=== PATIENT | female | born 1985 | race Caucasian/White ===

== ENCOUNTER 2016-12-09 22:27 | Inpatient (IN) | payer MEDICAID ==
[~2016-12-09] VITALS: Ht 162.6 cm; Wt 79.9 kg
[2016-12-09 22:55] VITALS: Ht 162.6 cm; Wt 79.9 kg
[2016-12-09 22:56] VITALS: BP 99/57; PULSE 77; RESP 14
[2016-12-10] MEDS ORDERED: LACTATED RINGER'S 500 ML IV ONE (02:30)
[2016-12-10] MEDS: LACTATED RINGER'S 1,000 ML IV SCH ×3 (03:52→18:32)
[2016-12-10] MEDS ORDERED: ACETAMINOPHEN 325 MG TAB PO PRN (04:00)
[2016-12-10] MEDS ORDERED: MAGNESIUM SULFATE 4 GM/100 ML 100 ML IV ONE (04:00)
[2016-12-10] MEDS ORDERED: AL HYDROX/MG HYDROX/SIMETH 30 ML CUP PO PRN (04:00)
[2016-12-10 04:17] LABS: BASOPHILS % 0.3 % (0.0-2.0); EOSINOPHILS # 0.3 10^3/ul (0.0-0.5); EOSINOPHILS % 2.3 % (0.0-7.0); HEMATOCRIT 29.4 % (37.0-47.0); HEMOGLOBIN 9.9 g/dl (12.0-16.0); LYMPHOCYTES # 2.6 10^3/ul (0.8-2.9); LYMPHOCYTES % 22.5 % (15.0-51.0); MEAN CORPUSCULAR HEMOGLOBIN 29.5 pg (29.0-33.0); MEAN CORPUSCULAR HGB CONC 33.7 g/dl (32.0-37.0); MEAN CORPUSCULAR VOLUME 87.5 fl (82.0-101.0); MEAN PLATELET VOLUME 9.9 fl (7.4-10.4); MONOCYTE # 0.8 10^3/ul (0.3-0.9); MONOCYTES % 6.9 % (0.0-11.0); NEUTROPHIL # 7.6 10^3/ul (1.6-7.5); NEUTROPHILS % 65.8 % (39.0-77.0); PLATELET COUNT 254 10^3/UL (140-415); RED BLOOD COUNT 3.36 10^6/ul (4.20-5.40); RED CELL DISTRIBUTION WIDTH 13.5 % (11.5-14.5); WHITE BLOOD COUNT 11.5 10^3/ul (4.8-10.8)
[2016-12-10 04:19] LABS: INR 0.95; PROTIME 12.7 Sec (12.2-14.2)
[2016-12-10 04:22] LABS: ALBUMIN 3.3 g/dl (3.3-4.9); ALBUMIN/GLOBULIN RATIO 0.97; BILIRUBIN,INDIRECT 0.1 mg/dl (0-1.1); BILIRUBIN,TOTAL 0.1 mg/dl (0.2-1.3); CALCIUM 9.6 mg/dl (8.4-10.2); CREATININE 0.51 mg/dl (0.44-1.00); POTASSIUM 3.8 mmol/L (3.5-5.1); TOTAL PROTEIN 6.7 g/dl (6.1-8.1)
[2016-12-10 04:26] LABS: PARTIAL THROMBOPLASTIN TIME 23.8 Sec (25.0-35.0)
[2016-12-10] MEDS ORDERED: MAGNESIUM SULFATE 20 GM/500 ML 500 ML IV SCH (04:30)
--- NOTE | 2016-12-10 04:46 | RADRPT ---
PROCEDURE: CHEST - 1 VIEW CLINICAL INDICATION: 30-year-old female with shortness of breath. TECHNIQUE: A single frontal AP portable view of the chest was performed. The patient's abdomen wa s shielded. The images were reviewed on a PACS workstation. COMPARISON: None. FINDINGS: The cardiomediastinal silhouette has a normal appearance. There is no evidence for an infiltrate. T he pulmonary vascularity is within normal limits. There is no evidence for pneumothorax or pneumomed iastinum. The osseous structures are intact. IMPRESSION: No evidence for active cardiopulmonary disease. .Soren Saba MD, Date Time Electronically viewed and signed by .Soren Saba MD, on 12/10/2016 04:46 .M/
[2016-12-10] MEDS: BETAMET NA PHOS/AC(6 MG/ML) 5ML INJ IM SCH (04:56)
[2016-12-10 06:16] LABS: D-DIMER 1081.46 ng/ml (<460)
--- NOTE | 2016-12-10 06:36 | RADRPT ---
PROCEDURE: ULTRASOUND BIOPHYSICAL PROFILE CLINICAL INDICATION: 30-year-old female for viability. TECHNIQUE: Multiple sonographic images were obtained in order to perform a biophysical profile The images were reviewed on a PACS workstation. COMPARISON: None. FINDINGS: There is a single viable intrauterine gestation. There is a vertex presentation. Cardiac activity i s present at 139 beats per minute. The placenta is anterior. The results of the biophysical profile are as follows: breathing movement = 2/2 Gross body movement = 2/2 tone = 2/2 Qualitative amniotic fluid volume = 2/2 Amniotic fluid index equals 15.0 cm. This yields a biophysical profile score of 8/8. IMPRESSION: Biophysical profile score is 8/8. .Soren Saba MD, Date Time Electronically viewed and signed by .Soren Saba MD, MD on 12/10/2016 00:34 .M/
[2016-12-10 06:37] LABS: CK-MB 0.28 ng/ml (0.0-2.4); TROPONIN-I < 0.012 ng/ml (0.00-0.12)
--- NOTE | 2016-12-10 08:55 | CONS ---
Date/Time of Note Date/Time of Note DATE: 12/10/16 TIME: 08:45 Assessment/Plan Assessment/Plan Chief Complaint/Hosp Course This is a 30-year-old female in the labor and delivery unit for #1 shortness of breath: At the current time the mechanism of the patient's shortness of breath appears to be related secondary to contractions with the gravid uterus pushing up her abdomen. I feel like this likely is contributing to her shortness of breath as well as desaturations. When she is not jose david which was during my examination, she is saturating adequately. However with her questionable history that she described of shortness of breath for the past 2-3 days and her being and and hypercoagulable state there is a possible concern for underlying PE. D-dimer was elevated in the 1999s however this is not very definitive as it usually is elevated in states and it is not reliable study in the situation. At the current time I will order a stat CTA of the chest to rule out PE. Chest x-ray at the current time is within normal values. Will also order EKG and cardiac troponins for completeness sake. #2 IUP at 35 weeks: Continue management as per OB. Thank you for this consultation we will continue to follow this patient with you. Problems: Consultation Date/Type/Reason Admit Date/Time Dec 10, 2016 at 03:30 Date of Consultation: Dec 10, 2016 Reason for Consultation Short of breath Hx of Present Illness This is a 30-year-old G 1 P0 female at 35 weeks gestation who came in complaining of contractions and shortness of breath for approximately 2-3 days. We will call to evaluate the patient for shortness of breath and desaturations during her contractions. Patient states that every time she has a contraction she starts feeling short of breath. Once her contractions sees her breathing improved. She denies any chest pain. Denies any diaphoresis. She denies any pleuritic pain on deep inspiration. Denies any cough or hemoptysis. This is her first . Allergies: NKDA Medications: Prenatals Const: As per HPI Eyes : No pain discharge or redness or change in visual acuity ENT: No pain, sore throat, congestion, congestion, dysphagia or discharge Respiratory: As per HPI Cardiovascular: No chest pain, palpitation, PND, or edema GI : As per HPI Genitourinary: No dysuria, hematuria, flank pain , discharge or CVA tenderness Musculoskeletal: No joint pain, back pain, neck pain, restricted range of motion in neck or joints Skin: No rash, bruising or hives Neuro: No headache, dizziness, syncope, seizure, focal weakness Endocrine: No polyuria, polydipsia, temperature intolerance Psych: No hallucination, depression, anxiety or suicidal ideation Past Medical History Uterine cyst Past Surgical History Uterine cyst removal Family History Significant Family History: no pertinent family hx Social History Smoking Status: Former smoker Exam/Review of Systems Vital Signs Vitals Vital Signs Date Time Temp Pulse Resp B/P Pulse Ox O2 Delivery O2 Flow Rate FiO2 12/09/16 22:56 98.4 77 14 99/57 97 Room Air Intake and Output 12/09/16 12/09/16 12/10/16 15:00 23:00 07:00 Intake Total 2025 ml Output Total 500 ml Balance 1525 ml Exam General: This is a pleasant female sitting in bed in no acute distress. During my examination patient did not experience any contractions. HEENT: Atraumatic, normocephalic. The pupils are equal, round and reactive. Extraocular motor are intact Neck: Supple with full range of motion. No rigidity or meningismus Chest: Nontender Lungs: Clear to auscultation bilaterally no crackles rales or wheezing, patient does not appear in any respiratory distress and she does not complain of any pleuritic pain on deep inspiration Heart: Normal S1-S2, Regular rhythm and rate. No overt murmurs appreciated Abdomen: Gravid Extremities: Normal to inspection, no edema no cyanosis Neurologic: Normal mental status, speech normal, cranial nerves II through XII are intact, motor and sensory are intact, no focal weakness Additional Comments PROCEDURE: CHEST - 1 VIEW CLINICAL INDICATION: 30-year-old female with shortness of breath. TECHNIQUE: A single frontal AP portable view of the chest was performed. The patient's abdomen was shielded. The images were reviewed on a PACS workstation. COMPARISON: None. FINDINGS: The cardiomediastinal silhouette has a normal appearance. There is no evidence for an infiltrate. The pulmonary vascularity is within normal limits. There is no evidence for pneumothorax or pneumomediastinum. The osseous structures are intact. IMPRESSION: No evidence for active cardiopulmonary disease. .Soren Saba MD, Date Time Electronically viewed and signed by .Soren Saba MD, on 12/10/2016 04:46 .M/ CC: STEPHANIE ARREDONDO Results Result Diagram: 12/10/160 12/10/16 0230 Results 24 hrs Laboratory Tests Test 12/10/16 02:30 White Blood Count 11.5 H Red Blood Count 3.36 L Hemoglobin 9.9 L Hematocrit 29.4 L Mean Corpuscular Volume 87.5 Mean Corpuscular Hemoglobin 29.5 Mean Corpuscular Hemoglobin Concent 33.7 Red Cell Distribution Width 13.5 Platelet Count 254 Mean Platelet Volume 9.9 Neutrophils % 65.8 Lymphocytes % 22.5 Monocytes % 6.9 Eosinophils % 2.3 Basophils % 0.3 Nucleated Red Blood Cells % 0.0 Neutrophils # 7.6 H Lymphocytes # 2.6 Monocytes # 0.8 Eosinophils # 0.3 Basophils # 0.0 Nucleated Red Blood Cells # 0.0 Prothrombin Time 12.7 Prothrombin Time Ratio 1.0 INR International Normalized Ratio 0.95 Activated Partial Thromboplast Time 23.8 L D-Dimer 1081.46 H D-Dimer Comment Sodium Level 134 L Potassium Level 3.8 Chloride Level 104 Carbon Dioxide Level 25 Anion Gap 9 Blood Urea Nitrogen 7 Creatinine 0.51 Glucose Level 89 Calcium Level 9.6 Total Bilirubin 0.1 L Direct Bilirubin 0.00 Indirect Bilirubin 0.1 Aspartate Amino Transf (AST/SGOT) 19 Alanine Aminotransferase (ALT/SGPT) 35 Alkaline Phosphatase 166 H Creatinine Kinase MB (Mass) 0.28 Troponin I < 0.012 Total Protein 6.7 Albumin 3.3 Globulin 3.40 H Albumin/Globulin Ratio 0.97 Medications Medications Current Medications Lactated Ringer's 1,000 ml @ 150 mls/hr Q6H40M IV Last administered on 03:52; Admin Dose 150 MLS/HR; Start 12/10/16 at 02:30 Lactated Ringer's 1,000 ml @ 125 mls/hr Q8H IV Last administered on 12/10/16 06:01; Admin Dose 125 MLS/HR; Start 12/10/16 at 03:40 Magnesium Sulfate (Magnesium Sulfate 20 Gm/500 ml) 500 ml @ 50 mls/hr Q10H IV Last administered on 12/10/16 06:42; Admin Dose 50 MLS/HR; Start 12/10/16 at 04 :30 Betamethasone Acet/Betameth SodPhos (Celestone Soluspan) 12 mg Q24H IM Last administered on 12/10/16 04:56; Admin Dose 12 MG; Start 12/10/16 at 04:00; Stop 12/11/16 at 04:01 Prenat Multivit/ [employer]/Iron/Folic Ac () 1 tab DAILY PO ; Start 12/10/16 at 09:00 Acetaminophen (Tylenol Tab) 650 mg Q4H PRN PO PAIN AND OR ELEVATED TEMP; Start 12/10/16 at 04:00 Al Hydrox/Mg Hydrox/Simethicone (Mag-Al Plus) 30 ml Q6H PRN PO GASTROINTESTINAL UPSET; Start 12/10/16 at 04:00 STEPHANIE ARREDONDO Dec 10, 2016 08:55
[2016-12-10] MEDS ORDERED: PRENATAL VITAMIN PO SCH (09:00)
[2016-12-10] MEDS ORDERED: IOHEXOL 100 ML ONE (09:36)
[2016-12-10] MEDS ORDERED: SOD CHLORIDE 0.9% 100 ML ONE (09:36)
--- NOTE | 2016-12-10 10:02 | RADRPT ---
PROCEDURE: CTA Chest CLINICAL INDICATION: Chest pressure, dyspnea, 35 weeks TECHNIQUE: CTA of the chest was performed following the uncomplicated IV administration of 100 cc Omnipaque 350. Coronal and sagittal images were reconstructed from the axial data set. 3-D volumet alvin rendered post processing was performed as well. One or more of the following dose reduction minna hniques were used: automated exposure control, adjustment of the mA and/or kV according to patient s ize, use of iterative reconstruction technique. CTDI = 12.84 mGy. DLP = 410.50 mGy-cm. COMPARISON: Chest x-ray, 12/10/2016 FINDINGS: No filling defect is present to suggest pulmonary embolism. There is no evidence for pulmonary caitlin rial hypertension. There is mild bibasilar atelectasis. No acute infiltrate, pleural effusion, pulmonary edema or pneum othorax is identified. The central tracheobronchial tree is clear. No pulmonary nodule or mass is id entified. The heart size is normal without pericardial effusion. There is no thoracic aortic aneurysm or disse ction. No mediastinal, hilar, axillary or supraclavicular lymphadenopathy is identified. Mild hiatal hernia is noted. Visualized portions of the upper abdomen demonstrate no acute abnormality. The osseous structures a re unremarkable. No osteolytic or osteoblastic lesion is seen. IMPRESSION: 1. No pulmonary embolism is identified. 2. Mild hiatal hernia is noted. 3. No mass, lymphadenopathy, or focal acute infiltrate is seen. RPTAT: AAOO .Ambrocio Mcnally MD, Date Time Electronically viewed and signed by .Ambrocio Mcnally MD, on 12/10/2016 10:02 .R/
--- NOTE | 2016-12-10 14:06 | HP ---
Date/Time of Note Date/Time of Note DATE: 12/10/16 TIME: 14:03 OB - History Hx of Present Free Text/Dictation @35+wks GA With CTXs and in early labor Patient had shortness of Breath earlier and has been evaluated by Hospitalist s/p Mg and first dose of steroid : 1 Para: 0 Care: Good Care Ultrasounds: Normal mid trimester US Obstetrical Complications: None Medical Complications: None Past Family/Social History * Past Medical, Surgical, Family and Obstetric Histories reviewed from chart. OB Admission Exam Vital Signs Vital Signs Vital Signs Date Time Temp Pulse Resp B/P Pulse Ox O2 Delivery O2 Flow Rate FiO2 12/09/16 22:56 98.4 77 14 99/57 97 Room Air Physical Exam Abdomen: WNL Extremities: Normal Cervical Dilatation: 1cm Effacement: Other (90%) Station: -1 Membranes: Intact Heart Rate: 140's Accelerations: Accelerations Present Decelerations: No Decelerations Varibility: Moderate Contractions on Admission: < 5 Minutes Apart Last 72 hours Lab Results CBC & BMP 12/10/16 02:30 Liver Function Test 12/10/16 02:30 Alanine Aminotransferase (ALT/SGPT) 35 Albumin 3.3 Alkaline Phosphatase 166 H Aspartate Amino Transf (AST/SGOT) 19 Direct Bilirubin 0.00 Total Protein 6.7 Magnesium Level Test 12/10/16 11:37 Magnesium Level 3.9 H OB Assessment/Plan Reason for admission: observation Plan: Expectant Management PIERRE GRUBER M.D. Dec 10, 2016 14:06
--- NOTE | 2016-12-10 14:30 | TRIAGE ---
OB Triage Datetime Report Generated by CPN: 12/10/2016 14:29 Datetime: 12/10/2016 13:53 Vaginal Exam Dilatation (cms): 1.0 Effacement (%): 90 Station: -1 Exam By: DR GRUBER Vaginal Bleeding: None Cervix, Consistency: Soft Cervix, Position: Posterior Presentation 'A': Cephalic Datetime: 12/10/2016 13:33 Maternal Assessment Level of Consciousness: Fully Conscious DTR's/Clonus: DTRs 2+ Headache: Denies Respiratory Effort: Unlabored Breath Sounds, Left: Clear and Equal Breath Sounds, Right: Clear and Equal Labor Evaluation Frequency: 6-7 Monitor Mode: External Duration (sec)2399: 50-70 Quality: Mild Resting Tone Ama: Relaxed Heart Rate FHR Baseline Rate: 125 Monitor Mode: External US Variability: Moderate 6-25 bpm Accelerations: 10X10 Decelerations: None Category: Category I Pain Assessment Pain Scale: 3 Pain Presence: None/Denies Pain Type: Cramping Pain Location: Abdomen Pain Goal: 3 Pain Relief Measures: Comfort Measures Datetime: 12/10/2016 13:22 Stage of : OB Triage Datetime: 12/10/2016 12:30 Maternal Assessment Level of Consciousness: Fully Conscious DTR's/Clonus: DTRs 2+ Headache: Denies Blurred Vision: No Respiratory Effort: Unlabored Breath Sounds, Left: Clear and Equal Breath Sounds, Right: Clear and Equal Facial Edema: None Labor Evaluation Frequency: 4-5 Monitor Mode: External Duration (sec)2399: 50-70 Quality: Mild Pattern: Normal: <= 5 Contractions in 10 Minutes Resting Tone Ama: Relaxed Heart Rate FHR Baseline Rate: 130 Monitor Mode: External US Variability: Moderate 6-25 bpm Accelerations: 10X10 Decelerations: None Category: Category I Pain Assessment Pain Scale: 4 Pain Presence: Intermittent Pain Type: N/A Pain Location: Abdomen Pain Goal: 3 Pain Relief Measures: Comfort Measures Datetime: 12/10/2016 11:19 Maternal Assessment Level of Consciousness: Fully Conscious DTR's/Clonus: DTRs 2+ Headache: Denies Blurred Vision: No Respiratory Effort: Unlabored Breath Sounds, Left: Clear and Equal Breath Sounds, Right: Clear and Equal RUQ Epigastric Pain: Denies Facial Edema: None Labor Evaluation Frequency: 4-7 Monitor Mode: External Duration (sec)2399: 50-70 Quality: Mild Resting Tone Ama: Relaxed Heart Rate FHR Baseline Rate: 125 Monitor Mode: External US Variability: Moderate 6-25 bpm Accelerations: 10X10 Decelerations: None Category: Category I Pain Assessment Pain Scale: 4 Pain Presence: Intermittent Pain Type: Cramping Pain Location: Abdomen Pain Goal: 3 Pain Relief Measures: Comfort Measures Datetime: 12/10/2016 11:01 Stage of : OB Triage Datetime: 12/10/2016 10:50 Stage of : OB Triage Datetime: 12/10/2016 10:23 Maternal Assessment Level of Consciousness: Fully Conscious DTR's/Clonus: DTRs 2+ Headache: Denies Blurred Vision: No Respiratory Effort: Unlabored Breath Sounds, Left: Clear and Equal Breath Sounds, Right: Clear and Equal Nausea/Vomiting: Denies RUQ Epigastric Pain: Denies Facial Edema: None Labor Evaluation Frequency: 2-3 Monitor Mode: External Duration (sec)2399: 50-70 Quality: Mild Pattern: Normal: <= 5 Contractions in 10 Minutes Resting Tone Ama: Relaxed Heart Rate FHR Baseline Rate: 125 Monitor Mode: External US Variability: Moderate 6-25 bpm Accelerations: 10X10 Decelerations: None Category: Category I Pain Assessment Pain Scale: 4 Pain Presence: Intermittent Pain Type: Cramping Pain Location: Abdomen Pain Goal: 3 Pain Relief Measures: Comfort Measures Datetime: 12/10/2016 09:21 Maternal Assessment Level of Consciousness: Fully Conscious DTR's/Clonus: DTRs 2+ Headache: Denies Blurred Vision: No Respiratory Effort: Unlabored Breath Sounds, Left: Clear and Equal Breath Sounds, Right: Clear and Equal Nausea/Vomiting: Denies RUQ Epigastric Pain: Denies Labor Evaluation Frequency: 2-7 Monitor Mode: External Duration (sec)2399: 50-70 Quality: Mild Resting Tone Ama: Relaxed Heart Rate FHR Baseline Rate: 135 Monitor Mode: External US Variability: Moderate 6-25 bpm Accelerations: 10X10 Decelerations: None Category: Category I Pain Assessment Pain Scale: 4 Pain Presence: Intermittent Pain Type: Cramping Pain Location: Abdomen Pain Goal: 3 Pain Relief Measures: Comfort Measures Datetime: 12/10/2016 09:19 Stage of : OB Triage Datetime: 12/10/2016 08:37 Maternal Assessment Level of Consciousness: Fully Conscious DTR's/Clonus: DTRs 2+; No Clonus Headache: Denies Blurred Vision: No Respiratory Effort: Unlabored; Regular Rhythm; Equal Expansion Breath Sounds, Left: Clear and Equal Breath Sounds, Right: Clear and Equal Nausea/Vomiting: Denies RUQ Epigastric Pain: Denies Facial Edema: None Fall Risk Assessment History of Falling: (0) No Secondary Diagnosis: (0) No Ambulatory Aid: (0) Bedrest/Nurse Assist IV Therapy: (0) No Gait: (0) Normal/Bedrest/Immobile Mental Status: (0) Oriented to Own Ability Fall Score: 0 Fall Risk Score Definition: No Risk: No action required Datetime: 12/10/2016 08:30 Labor Evaluation Frequency: 4-7 Monitor Mode: External Duration (sec)2399: 50-70 Quality: Mild Pattern: Normal: <= 5 Contractions in 10 Minutes Resting Tone Ama: Relaxed Heart Rate FHR Baseline Rate: 130 Monitor Mode: External US Variability: Moderate 6-25 bpm Accelerations: 10X10 Decelerations: None Category: Category I Pain Assessment Pain Scale: 4 Pain Presence: Intermittent Pain Type: Cramping Pain Location: Abdomen Pain Goal: 3 Pain Relief Measures: Comfort Measures Datetime: 12/10/2016 07:50 Maternal Assessment Level of Consciousness: Fully Conscious DTR's/Clonus: DTRs 2+; No Clonus Headache: Denies Blurred Vision: No Respiratory Effort: Unlabored; Regular Rhythm; Equal Expansion Breath Sounds, Left: Clear and Equal Breath Sounds, Right: Clear and Equal Nausea/Vomiting: Denies RUQ Epigastric Pain: Denies Facial Edema: None Fall Risk Assessment History of Falling: (0) No Secondary Diagnosis: (0) No Ambulatory Aid: (0) Bedrest/Nurse Assist IV Therapy: (0) No Gait: (0) Normal/Bedrest/Immobile Mental Status: (0) Oriented to Own Ability Fall Score: 0 Fall Risk Score Definition: No Risk: No action required Datetime: 12/10/2016 07:31 Stage of : OB Triage Labor Evaluation Frequency: 2-4 Monitor Mode: External Duration (sec)2399: 50-60 Quality: Mild Pattern: Normal: <= 5 Contractions in 10 Minutes Resting Tone Ama: Relaxed Heart Rate FHR Baseline Rate: 135 Monitor Mode: External US Variability: Moderate 6-25 bpm Accelerations: 10X10 Decelerations: None Category: Category I Pain Assessment Pain Scale: 5 Pain Presence: Intermittent Pain Type: Cramping Pain Location: Abdomen Pain Goal: 3 Pain Relief Measures: Comfort Measures Datetime: 12/10/2016 07:27 Stage of : OB Triage Datetime: 12/10/2016 07:01 Stage of : OB Triage Datetime: 12/10/2016 07:00 Stage of : OB Triage Maternal Assessment Level of Consciousness: Fully Conscious DTR's/Clonus: No Clonus Headache: Denies Blurred Vision: No Respiratory Effort: Unlabored; Regular Rhythm; Equal Expansion Breath Sounds, Left: Clear and Equal Breath Sounds, Right: Clear and Equal Nausea/Vomiting: Denies RUQ Epigastric Pain: Denies Facial Edema: None Labor Evaluation Frequency: 2-13 Monitor Mode: External Duration (sec)2399: 40-100 Quality: Mild Pattern: Normal: <= 5 Contractions in 10 Minutes Resting Tone Ama: Relaxed Heart Rate FHR Baseline Rate: 130 Monitor Mode: External US FHR Baseline Changes: No Baseline Change Variability: Moderate 6-25 bpm Accelerations: 15X15 Decelerations: None Category: Category I Pain Assessment Pain Scale: 0 Pain Presence: None/Denies Pain Type: N/A Pain Goal: 0 Pain Relief Measures: Comfort Measures Pain Assessment Comments: patient denies pain Datetime: 12/10/2016 06:46 Stage of : OB Triage Respiratory Effort: Unlabored; Regular Rhythm; Equal Expansion Breath Sounds, Left: Clear and Equal Breath Sounds, Right: Clear and Equal Pain Type: N/A Pain Assessment Comments: Unable to assess - patient is sleeping Datetime: 12/10/2016 06:20 Maternal Assessment Level of Consciousness: Fully Conscious DTR's/Clonus: DTRs 2+; No Clonus Headache: Denies Blurred Vision: No Nausea/Vomiting: Denies RUQ Epigastric Pain: Denies Facial Edema: None Pain Type: N/A Pain Assessment Comments: Unable to assess as the patient is sleeping Datetime: 12/10/2016 06:11 Maternal Assessment Level of Consciousness: Fully Conscious DTR's/Clonus: DTRs 2+; No Clonus Headache: Denies Blurred Vision: No Respiratory Effort: Unlabored; Regular Rhythm; Equal Expansion Breath Sounds, Left: Clear and Equal Breath Sounds, Right: Clear and Equal Nausea/Vomiting: Denies RUQ Epigastric Pain: Denies Facial Edema: None Datetime: 12/10/2016 06:00 Stage of : OB Triage Maternal Assessment Level of Consciousness: Fully Conscious Labor Evaluation Frequency: 1.5-5 Monitor Mode: External Duration (sec)2399: 40-90 Quality: Mild Pattern: Normal: <= 5 Contractions in 10 Minutes Resting Tone Ama: Relaxed Heart Rate FHR Baseline Rate: 130 Monitor Mode: External US FHR Baseline Changes: No Baseline Change Variability: Moderate 6-25 bpm Accelerations: 15X15 Decelerations: None Category: Category I Datetime: 12/10/2016 05:00 Stage of : OB Triage Maternal Assessment Level of Consciousness: Fully Conscious Labor Evaluation Frequency: 1-4 Monitor Mode: External Duration (sec)2399: 50-100 Quality: Mild Pattern: Normal: <= 5 Contractions in 10 Minutes Resting Tone Ama: Relaxed Heart Rate FHR Baseline Rate: 130 Monitor Mode: External US Variability: Moderate 6-25 bpm Accelerations: 15X15 Decelerations: None Category: Category I Datetime: 12/10/2016 04:16 Stage of : OB Triage Datetime: 12/10/2016 04:00 Labor Evaluation Frequency: 1-3 Monitor Mode: External Duration (sec)2399: 30-80 Quality: Mild Pattern: Normal: <= 5 Contractions in 10 Minutes Resting Tone Ama: Relaxed Heart Rate FHR Baseline Rate: 130 Monitor Mode: External US Variability: Moderate 6-25 bpm Accelerations: 15X15 Decelerations: None Category: Category I Pain Assessment Pain Scale: 6 Pain Presence: Intermittent Pain Type: Cramping Pain Location: Abdomen Pain Goal: 0 Pain Relief Measures: Comfort Measures Pain Assessment Comments: patient states her pain increases with UCs Datetime: 12/10/2016 03:26 Stage of : OB Triage Datetime: 12/10/2016 03:00 Stage of : OB Triage Labor Evaluation Frequency: 2-5 Monitor Mode: External Duration (sec)2399: 50-80 Quality: Mild Pattern: Normal: <= 5 Contractions in 10 Minutes Resting Tone Ama: Relaxed Heart Rate FHR Baseline Rate: 135 Monitor Mode: External US Variability: Moderate 6-25 bpm Accelerations: 15X15 Decelerations: None Category: Category I Datetime: 12/10/2016 02:09 Stage of : OB Triage Datetime: 12/10/2016 02:00 Stage of : OB Triage Maternal Assessment Level of Consciousness: Fully Conscious Headache: Denies Labor Evaluation Frequency: 1.5-5 Monitor Mode: External Duration (sec)2399: 50-100 Quality: Mild Pattern: Normal: <= 5 Contractions in 10 Minutes Resting Tone Ama: Relaxed Heart Rate FHR Baseline Rate: 130 Monitor Mode: External US Variability: Moderate 6-25 bpm Accelerations: 15X15 Decelerations: None Category: Category I Pain Assessment Pain Scale: 6 Pain Presence: Intermittent Pain Type: Cramping Pain Location: Abdomen Pain Goal: 0 Pain Relief Measures: Comfort Measures Pain Assessment Comments: patient states she feels pain with the UCs Datetime: 12/10/2016 01:54 Respiratory Effort: Unlabored; Regular Rhythm; Equal Expansion Breath Sounds, Left: Clear and Equal Breath Sounds, Right: Clear and Equal Datetime: 12/10/2016 01:52 Maternal Assessment Level of Consciousness: Fully Conscious Headache: Denies Datetime: 12/10/2016 01:50 Stage of : OB Triage Vaginal Exam Dilatation (cms): 0.0 Effacement (%): 0 Station: -2 Exam By: Nancy Huerta RN Membrane Status: Intact Vaginal Bleeding: None Cervix, Consistency: Firm Cervix, Position: Posterior Presentation 'A': Cephalic Datetime: 12/10/2016 01:44 Pain Assessment Pain Scale: 6 Pain Presence: Intermittent Pain Type: Cramping Pain Location: Abdomen; Back Pain Goal: 2 Pain Relief Measures: Comfort Measures Pain Assessment Comments: patient states pain occurs during UCs Datetime: 12/10/2016 01:00 Stage of : OB Triage Maternal Assessment Level of Consciousness: Fully Conscious Headache: Denies Blurred Vision: No Respiratory Effort: Unlabored; Regular Rhythm; Equal Expansion Breath Sounds, Left: Clear and Equal Breath Sounds, Right: Clear and Equal Nausea/Vomiting: Denies Facial Edema: None Labor Evaluation Frequency: 2-4 Monitor Mode: External Duration (sec)2399: 40-90 Quality: Mild Pattern: Normal: <= 5 Contractions in 10 Minutes Resting Tone Ama: Relaxed Monitor Mode: External US Variability: Moderate 6-25 bpm Accelerations: 15X15 Decelerations: None Category: Category I Pain Assessment Pain Scale: 6 Pain Presence: Intermittent Pain Type: Cramping Pain Location: Abdomen Pain Goal: 0 Pain Relief Measures: Comfort Measures Pain Assessment Comments: patient states that she feels the UCs Datetime: 12/10/2016 00:40 Stage of : OB Triage Datetime: 12/10/2016 00:00 Stage of : OB Triage Maternal Assessment Level of Consciousness: Fully Conscious Headache: Denies Labor Evaluation Frequency: 1.5-5 Monitor Mode: External Duration (sec)2399: 40-80 Quality: Mild Pattern: Normal: <= 5 Contractions in 10 Minutes Resting Tone Ama: Relaxed Heart Rate FHR Baseline Rate: 130 Monitor Mode: External US Variability: Moderate 6-25 bpm Accelerations: 15X15 Decelerations: None Category: Category I Pain Assessment Pain Scale: 5 Pain Presence: Intermittent Pain Type: Cramping Pain Location: Abdomen; Back Pain Goal: 0 Pain Relief Measures: Comfort Measures Pain Assessment Comments: patient states she feels pain during UCs Datetime: 12/09/2016 23:20 Stage of : OB Triage Datetime: 12/09/2016 23:00 Stage of : OB Triage Maternal Assessment Level of Consciousness: Fully Conscious Blurred Vision: No Nausea/Vomiting: Denies Facial Edema: None Labor Evaluation Frequency: 0/hour Monitor Mode: External Pattern: Normal: <= 5 Contractions in 10 Minutes Resting Tone Ama: Relaxed Contraction Comments: patient states she feels intermittent pain but does not know if it is UCs Monitor Mode: External US Variability: Moderate 6-25 bpm Accelerations: 15X15 Decelerations: None Category: Category I Membrane Status: Intact Datetime: 12/09/2016 22:51 Time of Arrival: 12/09/2016 22:20 EGA: 35.0 Arrived By: Ambulatory Arrived From: Home Chief Complaint: SOB, Dizziness 3 days ago, SKINNER, white vaginal discharge Movement: Present Contractions: Irregular Time Contractions Began: 12/09/2016 12:00 Rupture of Membranes: Denies Vaginal Bleeding: None Vaginal Discharge: Present Recent Sexual Intercouse: Denies Abdominal Trauma: Not Applicable Patient Complaints: Cramping; Headache; Shortness of Breath; Dizziness Time Provider Notified: 12/09/2016 23:20 Provider Notified: TIFFANY Initial Plan: EFM, VS, BPP Datetime: 12/09/2016 22:48 Stage of : OB Triage Maternal Assessment Level of Consciousness: Fully Conscious DTR's/Clonus: DTRs 2+; No Clonus Headache: Denies Blurred Vision: No Respiratory Effort: Unlabored; Regular Rhythm; Equal Expansion Breath Sounds, Left: Clear and Equal Breath Sounds, Right: Clear and Equal Nausea/Vomiting: Denies RUQ Epigastric Pain: Denies Lower Extremities Edema: Bilateral Lower Extremities Degree: 1+ Upper Extremities Edema: None Degree: None Facial Edema: None Fall Risk Assessment History of Falling: (0) No Secondary Diagnosis: (0) No Ambulatory Aid: (0) Bedrest/Nurse Assist IV Therapy: (0) No Gait: (0) Normal/Bedrest/Immobile Mental Status: (0) Oriented to Own Ability Fall Score: 0 Fall Risk Score Definition: No Risk: No action required Pain Assessment Pain Scale: 5 Pain Presence: Intermittent Pain Type: Cramping Pain Location: Abdomen Pain Goal: 0 Pain Relief Measures: Comfort Measures Pain Assessment Comments: patient states the pain started today but it tolerable Datetime: 12/09/2016 22:47 Respiratory Effort: Unlabored; Regular Rhythm; Equal Expansion Breath Sounds, Left: Clear and Equal Breath Sounds, Right: Clear and Equal
--- NOTE | 2016-12-10 21:32 | PN ---
Date/Time of Note Date/Time of Note DATE: 12/10/16 TIME: 21:26 OB Subjective Subjective Subjective no SOB but occasional chest tightness still occasional cramping pain pain level 5/10 OB Objective Objective Objective EFM tracing cat I irregular uc OB Assessment/Plan Other Assessment: IUP 35w2d s/p [id number] next dose at 0450 PE excluded mild hiatal hernia Other plan: transfer to antepartum for futher observation SALENA ALLEN MD Dec 10, 2016 21:32
[2016-12-11] MEDS: LACTATED RINGER'S 1,000 ML IV SCH ×5 (03:39→19:54)
[2016-12-11] MEDS: BETAMET NA PHOS/AC(6 MG/ML) 5ML INJ IM SCH (05:16)
[2016-12-11] MEDS ORDERED: BETAMET NA PHOS/AC(6 MG/ML) 5ML INJ IM SCH (07:30)
[2016-12-11] MEDS ORDERED: PANTOPRAZOLE (EC) 40 MG TAB PO ONE (09:00)
--- NOTE | 2016-12-11 13:30 | QN ---
Documentation Comment Afebrile Vital signs are stable No complaint of shortness of breath heart is to review, noted 2 minutes variable deceleration, and few occasional tachycardia return to the base line requesting hematology to review the heart strip TOMY ALBRIGHT MD Dec 11, 2016 13:30
--- NOTE | 2016-12-11 17:08 | CONS ---
Date/Time of Note Date/Time of Note DATE: 12/11/16 TIME: 17:05 Assessment/Plan Assessment/Plan Additional Assessment/Plan 30 yo F at 35w into IUP presented with contractions, hospitalist service consulted for SOB. CT PE negative will try to see pt tomorrow. if breathing nl will sign off from hospitalist standpoint Consultation Date/Type/Reason Admit Date/Time Dec 10, 2016 at 03:30 Initial Consult Date 12/10/16 Type of Consultation: hospitalist 24 HR Interval Summary Free Text/Dictation pt in shower at time of my attempted eval Exam/Review of Systems Vital Signs Vitals Vital Signs Date Time Temp Pulse Resp B/P Pulse Ox O2 Delivery O2 Flow Rate FiO2 12/09/16 22:56 98.4 77 14 99/57 97 Room Air Intake and Output 12/10/16 12/10/16 12/11/16 15:00 23:00 07:00 Intake Total 810 ml 525 ml 525 ml Output Total 1700 ml 500 ml 1000 ml Balance -890 ml 25 ml -475 ml Exam pt in shower at time of my attempted eval Results Result Diagram: 12/10/16 0230 12/10/16 0230 Results 24 hrs Laboratory Tests Test 12/11/16 00:25 12/11/16 05:58 Magnesium Level 2.1 # 1.9 Medications Medications Current Medications Lactated Ringer's (Lr) 1,000 ml @ 150 mls/hr [id number] IV Last administered on t 12:29; Admin Dose 150 MLS/HR; Start 12/10/16 at 02:30 GERBER CHAO MD Dec 11, 2016 17:08
[2016-12-11] MEDS ORDERED: MAGNESIUM HYDROXIDE 30ML CUP PO PRN (22:00)
[2016-12-11] MEDS ORDERED: BISACODYL (EC) 5 MG TAB PO ONE (22:00)
--- NOTE | 2016-12-12 03:55 | CONS ---
DATE OF ADMISSION: 12/10/2016 DATE OF CONSULTATION: 12/10/2016 HISTORY OF PRESENT ILLNESS: Patient is a 30-year-old, G1 at 35 weeks and 1 day, presented last nigh t with complaint of shortness of breath. Her shortness of breath occurred when she was sitting down . Her O2 saturations have been over 96%. Overnight, she had workup for the pulmonary embolus, whic h was negative, chest x-ray was negative, EKG was done, but needs to be read. Currently, she is completely asymptomatic with O2 saturation about 96% to 98% on room air. PAST OBSTETRICAL HISTORY: This is the first . Overall, her history is negative. REVIEW OF SYSTEMS: Negative, except what is mentioned above. VITAL SIGNS: Stable. PHYSICAL EXAMINATION: Deferred. heart tones reassuring. She is having contractions, about 5 to 7 minutes. Overnight, she was checked and apparently she was closed. IMAGING: CT scan which was done to evaluate pulmonary embolus, shows there is a mild hiatal hernia which may contribute to her shortness of breath because of acid reflux disease, especially since she had hamburger before she had shortness of breath. IMPRESSION: Intrauterine at 35 weeks and 1 day with complaint of shortness of breath, neg ative for pulmonary embolus. Chest x-ray is negative. Positive for mild hiatal hernia. She is completely asymptomatic now. She is having contractions every 5 to 7 minutes. There was no recent cervical check when I saw the patient around 11 in the morning. She was placed on magnesium sulfate because of the contractions; however, the heart tones are currently with the minimal v ariabilities. Overall, magnesium sulfate would not be the best choice for this patient as it could have contribute d to her shortness of breath. RECOMMENDATIONS: Discontinue magnesium sulfate. Patient can eat. I would not send the patient home and monitor overnight. If she is completely asymptomatic an d continues to have improved O2 saturation on room air, she can be discharged home, unless she is in labor. Dictated By: JEN BARKER/SANJIV Conf#: [id number] DID#: [id number] CC: TOMY ALBRIGHT MD;*EndCC*
[2016-12-12] MEDS: PANTOPRAZOLE (EC) 40 MG TAB PO SCH (05:34)
[2016-12-12] MEDS: LACTATED RINGER'S 1,000 ML IV SCH ×3 (06:56→22:02)
--- NOTE | 2016-12-12 13:32 | QN ---
Documentation Comment @35+wks GA With CTXs with labor No VB +FM No CTXs NST reassurring [place] No CTXs Pelvic Deferred --->possible discharge tomorrow PIERRE GRUBER M.D. Dec 12, 2016 13:32
--- NOTE | 2016-12-12 17:26 | CONS ---
Date/Time of Note Date/Time of Note DATE: 12/12/16 TIME: 17:23 Assessment/Plan Assessment/Plan Additional Assessment/Plan 30 yo F at 35w into IUP presented with contractions, hospitalist service consulted for SOB. CT chest negative for PE, +hiatal hernia. Breathing has returned to normal. Suspect SOB 2/2 gravid state, +/- GERD. Pt to f/u with PCP Hospitalist service to sign off at this time. Please call/page with questions Consultation Date/Type/Reason Admit Date/Time Dec 10, 2016 at 03:30 Initial Consult Date 12/10/16 Type of Consultation: hospitalist 24 HR Interval Summary Free Text/Dictation Pt states SOB has wholly resolved. Feel better Exam/Review of Systems Vital Signs Vitals Vital Signs Date Time Temp Pulse Resp B/P Pulse Ox O2 Delivery O2 Flow Rate FiO2 12/09/16 22:56 98.4 77 14 99/57 97 Room Air Intake and Output 12/11/16 12/11/16 12/12/16 15:00 23:00 07:00 Intake Total 75 ml 1665 ml 1000 ml Output Total 1100 ml 1900 ml Balance 75 ml 565 ml -900 ml Exam nad resp nonlabored abd gravid no rashes no edema Results Result Diagram: 12/10/16 0230 12/10/16 0230 Medications Medications Current Medications Lactated Ringer's (Lr) 1,000 ml @ 75 mls/hr [id number] IV Last administered on 14:54; Admin Dose 75 MLS/HR; Start 12/10/16 at 02:30 Pantoprazole (Protonix Tab) 40 mg DAILY@06 PO Last administered on 12/12/16 05 :34; Admin Dose 40 MG; Start 12/12/16 at 06:00 Magnesium Hydroxide (Milk Of Mag) 30 ml DAILY PRN PO CONSTIPATION Last administered on 12/11/16 21:52; Admin Dose 30 ML; Start 12/11/16 at 22:00 GERBER CHAO MD Dec 12, 2016 17:26
[2016-12-13] MEDS: PANTOPRAZOLE (EC) 40 MG TAB PO SCH (05:53)
[2016-12-13] MEDS ORDERED: PRENATAL VITAMIN PO SCH (09:00)
--- NOTE | 2016-12-13 10:57 | DS ---
Date/Time of Note Date/Time of Note DATE: 12/13/16 TIME: 10:53 Discharge Summary Admission/Discharge Info Admit Date/Time Dec 10, 2016 at 03:30 Discharge Date/Time December 13, 2016 at 10:30 AM Discharge Diagnosis 5 weeks 5 days patient had shortness breath underwent complete pulmonary workup was negative patient has no more difficulty breathing, obstetrical kimble heart tracing within normal is no labor contraction discharged home recommendation to be fluid at the clinic return to the hospital in case of labor any other problems Patient Condition: Good Consults Pulmonary consult Procedures Evaluation and treatment for shortness of breath Hx of Present Illness 5 weeks plus had some shortness of breath underwent complete workup which was negative he is doing well discharge home seen at the clinic in 2-3 days Hospital Course This is a 30-year-old female in the labor and delivery unit for #1 shortness of breath: At the current time the mechanism of the patient's shortness of breath appears to be related secondary to contractions with the gravid uterus pushing up her abdomen. I feel like this likely is contributing to her shortness of breath as well as desaturations. When she is not jose david which was during my examination, she is saturating adequately. However with her questionable history that she described of shortness of breath for the past 2-3 days and her being and and hypercoagulable state there is a possible concern for underlying PE. D-dimer was elevated in the 1999s however this is not very definitive as it usually is elevated in states and it is not reliable study in the situation. At the current time I will order a stat CTA of the chest to rule out PE. Chest x-ray at the current time is within normal values. Will also order EKG and cardiac troponins for completeness sake. #2 IUP at 35 weeks: Continue management as per OB. Thank you for this consultation we will continue to follow this patient with you. Follow-up Plan Recommended to make appointment to be seen at the clinic in 2-3 days Primary Care Provider Not On Staff Doctor Time spent on discharge: < 30 minutes TOMY ALBRIGHT MD Dec 13, 2016 10:57
--- NOTE | 2016-12-16 13:26 | RADRPT ---
Vent Rate: 76 bpm RR Interval: 0 msec MS Interval: 146 msec QRS Duration: 96 msec QT Interval: 404 msec QTC Interval: 454 msec P-R-T [place]: 36 - 33 - 37 degrees Normal sinus rhythm Normal ECG Electronically Signed By: Fahad Pro [id number]
== END 2016-12-13 12:40 | disposition home or self-care (01) | DRG 781 ==
LOC: OBT 22:27 → L-D 22:29 → OBT 12-10 07:30 → L-D 12-10 14:30 → OBG 12-10 22:09
PROVIDERS: ADMIT Obstetrics & Gynecology; ATTEND Obstetrics & Gynecology
DX: O26.893 Other specified pregnancy related conditions, third trimester (principal); K44.9 Diaphragmatic hernia without obstruction or gangrene; Z3A.35 35 weeks gestation of pregnancy; O99.613 Diseases of the digestive system complicating pregnancy, third trimester; O76 Abnormality in fetal heart rate and rhythm complicating labor and delivery; R06.02 Shortness of breath
CPT/HCPCS: 36415; 71010; 71275; 76818; 80053; 82553; 83735; 84484; 85025; 85378; 85610; 85730; 86592; 86900; 86901; 93005; 96360; G0463; J0702; J3475; J7120; Q9967

== ENCOUNTER 2017-01-10 13:54 | Inpatient (IN) | payer MEDICAID ==
[~2017-01-10] VITALS: Ht 162.6 cm; Wt 82.2 kg
[2017-01-10 14:37] VITALS: BP 117/64; PULSE 92; RESP 18; BMI 31.1
[2017-01-10 15:02] LABS: ADD UMIC YES; UR AMORPHOUS CRYSTAL FEW /HPF (NONE SEEN); UR ASCORBIC ACID NEGATIVE (NEGATIVE); UR BACTERIA MODERATE /HPF (NONE SEEN); UR BILIRUBIN (Dip) NEGATIVE (NEGATIVE); UR BLOOD (Dip) NEGATIVE (NEGATIVE); UR CLARITY CLOUDY (CLEAR); UR COLOR YELLOW (YELLOW); UR GLUCOSE (Dip) NEGATIVE (NEGATIVE); UR KETONES (Dip) NEGATIVE (NEGATIVE); UR LEUKOCYTE ESTERASE (Dip) NEGATIVE Leu/ul (NEGATIVE); UR NITRITE (Dip) NEGATIVE (NEGATIVE); UR RBC 2 /HPF (0-5); UR SPECIFIC GRAVITY (Dip) 1.016 (1.003-1.030); UR SQUAMOUS EPITHELIAL CELL FEW /HPF (FEW); UR TOTAL PROTEIN (Dip) 1+ mg/dl (NEGATIVE); UR UROBILINOGEN (Dip) NEGATIVE (NEGATIVE)
--- NOTE | 2017-01-10 15:41 | RADRPT ---
PROCEDURE: US OB biophysical profile. CLINICAL INDICATION: decreased movements, contractions TECHNIQUE: Multiple sonographic images of the pelvis were obtained. The images were reviewed on a PACS workstation. COMPARISON: US PELVIS 12/09/2016 FINDINGS: There is a single viable intrauterine gestation. Cardiac activity is present with 142 beats per min alisha. There is a vertex presentation. The placenta is anterior. There is no evidence of placental abruption. There is a normal amount of amniotic fluid with an LILY = 12.3 cm. Biophysical profile: movement 2/2 tone 2/2. breathing 2/2 LILY 2/2 Total 10/12 RPTAT: AA . IMPRESSION: Normal biophysical profile. . .Edin Beckham MD, MD Date Time Electronically viewed and signed by .Edin Beckham MD, MD on 01/10/2017 15:41 .S/
--- NOTE | 2017-01-10 15:43 | RADRPT ---
PROCEDURE: US OB. CLINICAL INDICATION: Size and dates , pain TECHNIQUE: Multiple sonographic images of the pelvis and gravid uterus were obtained. The images were reviewed on a PACS workstation. COMPARISON: 12/09/16 FINDINGS: There is a single viable intrauterine gestation. Cardiac activity is present with 142 beats per min alisha. There is a vertex presentation. The placenta is anterior. There is no evidence of placental abruption. There is a normal amount of amniotic fluid with an LILY = 12.3 cm. Measurements were made in order to determine age. The results are as follows: BPD =9.8 cm HC =34.5 cm AC =38 cm FL =7.6 cm Estimated gestational age of approximately 40 weeks and 1 day based on ultrasound measurements. Clinical age: 39 weeks and 2 days. The EFW = 4223 g, 95%, based on LMP age. RPTAT: AA IMPRESSION: Single viable intrauterine gestation of approximately 40 weeks and 1 day based on ultrasound measur ements. .Edin Beckham MD, MD Date Time Electronically viewed and signed by .Edin Beckham MD, on 01/10/2017 15:42 .S/
[2017-01-10] MEDS ORDERED: LACTATED RINGER'S 1,000 ML IV PRN (18:00)
--- NOTE | 2017-01-10 18:52 | TRIAGE ---
OB Triage Datetime Report Generated by CPN: 01/10/2017 17:00 Datetime: 01/10/2017 14:12 Vaginal Exam Dilatation (cms): 0.5 Effacement (%): 80 Station: -1 Exam By: VIRxSYS RN Datetime: 12/13/2016 10:45 Time of Arrival: 01/10/2017 13:45 EGA: 39.4 Arrived By: Ambulatory Arrived From: Home Chief Complaint: CONTACTIONS Movement: Present Contractions: Regular Contractions: 5-10 Rupture of Membranes: Denies Vaginal Bleeding: None Vaginal Discharge: Denies Recent Sexual Intercouse: Denies Abdominal Trauma: Not Applicable Patient Complaints: Visual Disturbance; Shortness of Breath; Dizziness Time Provider Notified: 01/10/2017 14:24 Provider Notified: DR. ALBRIGHT Initial Plan: SVE Datetime: 12/13/2016 10:34 Labor Evaluation Frequency: OCCASIONAL Monitor Mode: External Duration (sec)2399: 40-70 Pattern: Normal: <= 5 Contractions in 10 Minutes Resting Tone [place]: Relaxed Heart Rate FHR Baseline Rate: 130 Monitor Mode: External US FHR Baseline Changes: No Baseline Change Variability: Moderate 6-25 bpm Accelerations: 15X15 Decelerations: None Category: Category I Datetime: 12/13/2016 10:00 Labor Evaluation Frequency: 7 NOTED IN ONE HOUR Monitor Mode: External Duration (sec)2399: 60-140 Pattern: Normal: <= 5 Contractions in 10 Minutes Resting Tone [place]: Relaxed Contraction Comments: PT DENIES ANY UC'S Heart Rate FHR Baseline Rate: 130 Monitor Mode: External US FHR Baseline Changes: No Baseline Change Variability: Moderate 6-25 bpm Accelerations: 15X15 Decelerations: None Category: Category I Datetime: 12/13/2016 08:59 Labor Evaluation Frequency: 5 NOTED IN ONE HOUR Monitor Mode: External Duration (sec)2399: 50-100 Pattern: Normal: <= 5 Contractions in 10 Minutes Contraction Comments: PT DENIES FEELING ANY UC'S. Heart Rate FHR Baseline Rate: 130 Monitor Mode: External US FHR Baseline Changes: No Baseline Change Variability: Moderate 6-25 bpm Accelerations: 15X15 Decelerations: None Category: Category I Comments: SCATTERED CONTACT. PT SITTING UP IN BED EATING BREAKFAST Datetime: 12/13/2016 07:56 Labor Evaluation Frequency: 5 NOTED IN ONE HOUR Monitor Mode: External Duration (sec)2399: 90-200 Pattern: Normal: <= 5 Contractions in 10 Minutes Resting Tone [place]: Relaxed Contraction Comments: PT DENIES FEELING ANY UC'S Heart Rate FHR Baseline Rate: 130 Monitor Mode: External US FHR Baseline Changes: No Baseline Change Variability: Moderate 6-25 bpm Accelerations: 15X15 Decelerations: None Category: Category I Datetime: 12/13/2016 07:50 Assessment Type: Ongoing Assessment Maternal Assessment Level of Consciousness: Fully Conscious DTR's/Clonus: DTRs 2+; No Clonus Headache: Denies Blurred Vision: No Respiratory Effort: Unlabored; Regular Rhythm; Equal Expansion Breath Sounds, Left: Clear and Equal Breath Sounds, Right: Clear and Equal Nausea/Vomiting: Denies RUQ Epigastric Pain: Denies Lower Extremities Edema: None Upper Extremities Edema: None Degree: None Facial Edema: None Fall Risk Assessment History of Falling: (0) No Secondary Diagnosis: (0) No Ambulatory Aid: (0) Bedrest/Nurse Assist IV Therapy: (20) Yes Gait: (0) Normal/Bedrest/Immobile Mental Status: (0) Oriented to Own Ability Fall Score: 20 Fall Risk Score Definition: No Risk: No action required Datetime: 12/13/2016 06:01 Labor Evaluation Frequency: x4 Monitor Mode: External Duration (sec)2399: 40-70 Quality: Mild Resting Tone [place]: Relaxed Heart Rate FHR Baseline Rate: 140 Monitor Mode: External US Variability: Moderate 6-25 bpm Accelerations: 15X15 Decelerations: None Category: Category I Pain Presence: None/Denies Pain Type: N/A Datetime: 12/13/2016 05:00 Labor Evaluation Frequency: x4 Monitor Mode: External Duration (sec)2399: 40-60 Quality: Mild Resting Tone [place]: Relaxed Heart Rate FHR Baseline Rate: 140 Monitor Mode: External US Variability: Moderate 6-25 bpm Accelerations: 15X15 Decelerations: None Category: Category I Pain Presence: None/Denies Datetime: 12/13/2016 04:00 Labor Evaluation Frequency: occasional Monitor Mode: External Duration (sec)2399: 40-60 Quality: Mild Resting Tone [place]: Relaxed Heart Rate FHR Baseline Rate: 135 Monitor Mode: External US Variability: Moderate 6-25 bpm Accelerations: 15X15 Decelerations: None Category: Category I Datetime: 12/13/2016 03:01 Labor Evaluation Frequency: x4 Monitor Mode: External Duration (sec)2399: 60-70 Quality: Mild Resting Tone [place]: Relaxed Heart Rate FHR Baseline Rate: 135 Monitor Mode: External US Variability: Moderate 6-25 bpm Accelerations: 15X15 Decelerations: None Category: Category I Pain Presence: None/Denies Datetime: 12/13/2016 03:00 Labor Evaluation Frequency: 0 Monitor Mode: External Resting Tone [place]: Relaxed Heart Rate FHR Baseline Rate: 135 Variability: Moderate 6-25 bpm Accelerations: 15X15 Decelerations: None Category: Category I Datetime: 12/13/2016 02:10 Heart Rate FHR Baseline Rate: 140 Monitor Mode: External US Variability: Moderate 6-25 bpm Accelerations: 15X15 Decelerations: None Category: Category I Datetime: 12/13/2016 01:00 Labor Evaluation Frequency: x4 Monitor Mode: External Duration (sec)2399: 40-70 Quality: Mild Resting Tone [place]: Relaxed Heart Rate FHR Baseline Rate: 135 Monitor Mode: External US Variability: Moderate 6-25 bpm Accelerations: 15X15 Decelerations: None Category: Category I Pain Presence: None/Denies Pain Type: N/A Datetime: 12/12/2016 23:00 Labor Evaluation Frequency: x4 Monitor Mode: External Duration (sec)2399: 40-70 Quality: Mild Resting Tone [place]: Relaxed Heart Rate FHR Baseline Rate: 135 Monitor Mode: External US Variability: Moderate 6-25 bpm Accelerations: 15X15 Decelerations: None Category: Category I Pain Presence: None/Denies Pain Type: N/A Datetime: 12/12/2016 22:00 Labor Evaluation Frequency: 0 Monitor Mode: External Resting Tone [place]: Relaxed Heart Rate FHR Baseline Rate: 140 Monitor Mode: External US Variability: Moderate 6-25 bpm Accelerations: 15X15 Decelerations: None Category: Category I Pain Presence: None/Denies Pain Type: N/A Datetime: 12/12/2016 21:00 Labor Evaluation Frequency: irregular Monitor Mode: External Duration (sec)2399: 40-60 Quality: Mild Resting Tone [place]: Relaxed Heart Rate FHR Baseline Rate: 140 Monitor Mode: External US Variability: Moderate 6-25 bpm Accelerations: 15X15 Decelerations: None Category: Category I Pain Presence: None/Denies Pain Type: N/A Datetime: 12/12/2016 20:00 Labor Evaluation Frequency: x4 Monitor Mode: External Duration (sec)2399: 40-70 Quality: Mild Resting Tone [place]: Relaxed Contraction Comments: abdomen soft to palpation. Heart Rate FHR Baseline Rate: 135 Monitor Mode: External US Variability: Moderate 6-25 bpm Accelerations: 10X10 Decelerations: None Category: Category I Pain Presence: None/Denies Datetime: 12/12/2016 19:52 Stage of : Antepartum Assessment Type: Ongoing Assessment Maternal Assessment Level of Consciousness: Fully Conscious DTR's/Clonus: DTRs 2+; No Clonus Headache: Denies Blurred Vision: No Respiratory Effort: Unlabored; Regular Rhythm; Equal Expansion Breath Sounds, Left: Clear and Equal Breath Sounds, Right: Clear and Equal Nausea/Vomiting: Denies RUQ Epigastric Pain: Denies Lower Extremities Edema: None Upper Extremities Edema: None Degree: None Facial Edema: None Temperature Route: Oral Fall Risk Assessment History of Falling: (0) No Secondary Diagnosis: (0) No Ambulatory Aid: (0) Bedrest/Nurse Assist IV Therapy: (0) No Gait: (0) Normal/Bedrest/Immobile Mental Status: (0) Oriented to Own Ability Fall Score: 0 Fall Risk Score Definition: No Risk: No action required Pain Presence: None/Denies Datetime: 12/12/2016 18:52 Heart Rate FHR Baseline Rate: 130 Monitor Mode: External US FHR Baseline Changes: No Baseline Change Variability: Moderate 6-25 bpm Accelerations: 15X15 Decelerations: None Category: Category I Comments: SCATTERED CONTACT AT TIMES. PT SITTING UP IN BED EATING DINNER Datetime: 12/12/2016 18:00 Labor Evaluation Frequency: IRREGULAR Monitor Mode: External Duration (sec)2399: 40-130 Pattern: Normal: <= 5 Contractions in 10 Minutes Resting Tone [place]: Relaxed Heart Rate FHR Baseline Rate: 130 Monitor Mode: External US FHR Baseline Changes: No Baseline Change Variability: Moderate 6-25 bpm Accelerations: 15X15 Decelerations: None Category: Category I Datetime: 12/12/2016 17:00 Labor Evaluation Frequency: 5 NOTED IN ONE HOUR Monitor Mode: External Duration (sec)2399: 40-120 Pattern: Normal: <= 5 Contractions in 10 Minutes Resting Tone [place]: Relaxed Contraction Comments: DENIES FEELING ANY UC'S Heart Rate FHR Baseline Rate: 130 Monitor Mode: External US FHR Baseline Changes: No Baseline Change Variability: Moderate 6-25 bpm Accelerations: 15X15 Decelerations: None Category: Category I Datetime: 12/12/2016 15:42 Labor Evaluation Frequency: OCCASIONAL Monitor Mode: External Duration (sec)2399: 50-100 Pattern: Normal: <= 5 Contractions in 10 Minutes Resting Tone [place]: Relaxed Contraction Comments: DENIES FEELING ANY UC'S Heart Rate FHR Baseline Rate: 130 Monitor Mode: External US FHR Baseline Changes: No Baseline Change Variability: Moderate 6-25 bpm Accelerations: 15X15 Decelerations: None Category: Category I Datetime: 12/12/2016 14:59 Labor Evaluation Frequency: 2 NOTED IN ONE HOUR Monitor Mode: External Duration (sec)2399: 50-90 Pattern: Normal: <= 5 Contractions in 10 Minutes Resting Tone [place]: Relaxed Heart Rate FHR Baseline Rate: 130 Monitor Mode: External US FHR Baseline Changes: No Baseline Change Variability: Moderate 6-25 bpm Accelerations: 15X15 Decelerations: None Category: Category I Datetime: 12/12/2016 14:15 Comments: DR. GRUBER CALLED AND INFORMED OF PT CONTRACTIONS AND VAGINAL EXAM. NO NEW ORDERS REC EIVED Datetime: 12/12/2016 14:00 Labor Evaluation Frequency: 4 NOTED IN ONE HOUR Monitor Mode: External Duration (sec)2399: 40-90 Pattern: Normal: <= 5 Contractions in 10 Minutes Resting Tone [place]: Relaxed Contraction Comments: STILL DENIES FEELING ANY UC'S. ABODMEN SOFT TO PALPATION Heart Rate FHR Baseline Rate: 130 Monitor Mode: External US FHR Baseline Changes: No Baseline Change Variability: Moderate 6-25 bpm Accelerations: 15X15 Decelerations: None Category: Category I Datetime: 12/12/2016 13:41 Pain Assessment Pain Scale: 1 Pain Presence: Intermittent Pain Type: Cramping Pain Location: Abdomen Pain Goal: 1 Pain Assessment Comments: VAGINAL EXAM DONE DUE TO PT CONTRACTIONS. Vaginal Exam Dilatation (cms): 0.0 Effacement (%): 0 Station: -2 Exam By: DDUNN Vaginal Bleeding: None Cervix, Consistency: Firm Cervix, Position: Posterior Datetime: 12/12/2016 12:53 Labor Evaluation Frequency: 4 NOTED IN ONE HOUR Monitor Mode: External Duration (sec)2399: 50-120 Pattern: Normal: <= 5 Contractions in 10 Minutes Resting Tone [place]: Relaxed Contraction Comments: PT DENIES FEELING ANY UC'S Heart Rate FHR Baseline Rate: 135 Monitor Mode: External US FHR Baseline Changes: No Baseline Change Variability: Moderate 6-25 bpm Accelerations: 15X15 Decelerations: None Category: Category I Comments: SITTING UP IN BED EATING BREAKFAST Datetime: 12/12/2016 11:59 Labor Evaluation Frequency: 7 NOTED IN ONE HOUR Monitor Mode: External Duration (sec)2399: 70-100 Pattern: Normal: <= 5 Contractions in 10 Minutes Resting Tone [place]: Relaxed Contraction Comments: PT STILLS DENIES FEELING ANY UC'S Heart Rate FHR Baseline Rate: 140 Monitor Mode: External US FHR Baseline Changes: No Baseline Change Variability: Moderate 6-25 bpm Accelerations: 15X15 Decelerations: None Category: Category I Datetime: 12/12/2016 10:57 Labor Evaluation Frequency: 2 NOTED IN ONE HOUR Monitor Mode: External Duration (sec)2399: 80 Pattern: Normal: <= 5 Contractions in 10 Minutes Resting Tone [place]: Relaxed Contraction Comments: PT DENIES FEELING ANY UC'S. SCATTERED IRRITABILTY NOTED Heart Rate FHR Baseline Rate: 135 Monitor Mode: External US FHR Baseline Changes: No Baseline Change Variability: Moderate 6-25 bpm Accelerations: 15X15 Decelerations: None Category: Category I Datetime: 12/12/2016 09:55 Labor Evaluation Frequency: 6 NOTED IN ONE HOUR Monitor Mode: External Duration (sec)2399: 50-130 Pattern: Normal: <= 5 Contractions in 10 Minutes Resting Tone [place]: Relaxed Contraction Comments: PT DENIES FEELING ANY UC'S Heart Rate FHR Baseline Rate: 130 Monitor Mode: External US FHR Baseline Changes: No Baseline Change Variability: Moderate 6-25 bpm Accelerations: 15X15 Decelerations: None Category: Category I Datetime: 12/12/2016 09:13 Monitor Mode: External US Comments: PT BACK FROM BATHROOM. WAS SITTING UP EATING BREAKFAST Datetime: 12/12/2016 08:00 Labor Evaluation Frequency: OCCASIONAL Monitor Mode: External Duration (sec)2399: 70-110 Pattern: Normal: <= 5 Contractions in 10 Minutes Contraction Comments: PT DENIES FEELING ANY UC'S. ABODMEN SOFT TO PALPATION. SCATTERED IRRITABILI TY NOTED Heart Rate FHR Baseline Rate: 130 Monitor Mode: External US FHR Baseline Changes: No Baseline Change Variability: Moderate 6-25 bpm Accelerations: 15X15 Decelerations: None Category: Category I Datetime: 12/12/2016 07:58 Assessment Type: Ongoing Assessment Maternal Assessment Level of Consciousness: Fully Conscious DTR's/Clonus: DTRs 2+; No Clonus Headache: Denies Blurred Vision: No Respiratory Effort: Unlabored; Regular Rhythm; Equal Expansion Breath Sounds, Left: Clear and Equal Breath Sounds, Right: Clear and Equal Nausea/Vomiting: Denies RUQ Epigastric Pain: Denies Lower Extremities Edema: None Degree: None Upper Extremities Edema: None Degree: None Facial Edema: None Fall Risk Assessment History of Falling: (0) No Secondary Diagnosis: (0) No Ambulatory Aid: (0) Bedrest/Nurse Assist IV Therapy: (20) Yes Gait: (0) Normal/Bedrest/Immobile Mental Status: (0) Oriented to Own Ability Fall Score: 20 Fall Risk Score Definition: No Risk: No action required Datetime: 12/12/2016 07:00 Labor Evaluation Frequency: x4 Monitor Mode: External Duration (sec)2399: 50-130 Quality: Mild Resting Tone [place]: Relaxed Contraction Comments: pt without complaint of uc pain. Heart Rate FHR Baseline Rate: 135 Monitor Mode: External US FHR Baseline Changes: No Baseline Change Variability: Moderate 6-25 bpm Accelerations: 15X15 Decelerations: None Category: Category I Datetime: 12/12/2016 06:00 Labor Evaluation Frequency: x1 Monitor Mode: External Duration (sec)2399: 80 Quality: Mild Resting Tone [place]: Relaxed Contraction Comments: pt without complaint of uc pain. Heart Rate FHR Baseline Rate: 125 Monitor Mode: External US FHR Baseline Changes: No Baseline Change Variability: Moderate 6-25 bpm Accelerations: 15X15 Decelerations: None Category: Category I Pain Assessment Pain Scale: 0 Pain Presence: None/Denies Datetime: 12/12/2016 05:26 Stage of : Antepartum Temperature Route: Oral Datetime: 12/12/2016 05:00 Labor Evaluation Frequency: x4 Monitor Mode: External Duration (sec)2399: 40-50 Quality: Mild Resting Tone [place]: Relaxed Contraction Comments: pt without complaint of uc pain. Heart Rate FHR Baseline Rate: 125 Monitor Mode: External US FHR Baseline Changes: No Baseline Change Variability: Moderate 6-25 bpm Accelerations: 15X15 Decelerations: None Category: Category I Datetime: 12/12/2016 04:00 Labor Evaluation Frequency: x1 Monitor Mode: External Duration (sec)2399: 80 Quality: Mild Resting Tone [place]: Relaxed Contraction Comments: pt without complaint of uc pain. Heart Rate FHR Baseline Rate: 120 Monitor Mode: External US FHR Baseline Changes: No Baseline Change Variability: Moderate 6-25 bpm Accelerations: 15X15 Decelerations: None Category: Category I Datetime: 12/12/2016 03:00 Labor Evaluation Frequency: none Monitor Mode: External Resting Tone [place]: Relaxed Heart Rate FHR Baseline Rate: 140 Monitor Mode: External US FHR Baseline Changes: No Baseline Change Variability: Moderate 6-25 bpm Accelerations: 15X15 Decelerations: None Category: Category I Datetime: 12/12/2016 02:00 Labor Evaluation Frequency: x1 Monitor Mode: External Duration (sec)2399: 60 Quality: Mild Resting Tone [place]: Relaxed Contraction Comments: pt without complaint of uc pain. Heart Rate FHR Baseline Rate: 125 Monitor Mode: External US FHR Baseline Changes: No Baseline Change Variability: Moderate 6-25 bpm Accelerations: 15X15 Decelerations: Variable Category: Category II Datetime: 12/12/2016 01:14 Stage of : Antepartum Temperature Route: Oral Datetime: 12/12/2016 01:00 Labor Evaluation Frequency: x1 Monitor Mode: External Duration (sec)2399: 80 Quality: Mild Resting Tone [place]: Relaxed Contraction Comments: pt without complaint of uc pain. Heart Rate FHR Baseline Rate: 125 Monitor Mode: External US FHR Baseline Changes: No Baseline Change Variability: Moderate 6-25 bpm Accelerations: 15X15 Decelerations: Variable Category: Category II Datetime: 12/12/2016 00:00 Labor Evaluation Frequency: x2 Monitor Mode: External Duration (sec)2399: 40-100 Quality: Mild Resting Tone [place]: Relaxed Contraction Comments: pt without complaint of uc pain. Heart Rate FHR Baseline Rate: 125 Monitor Mode: External US FHR Baseline Changes: No Baseline Change Variability: Moderate 6-25 bpm Accelerations: 15X15 Decelerations: Variable Category: Category II Pain Assessment Pain Scale: 0 Pain Presence: None/Denies Datetime: 12/11/2016 23:00 Labor Evaluation Frequency: x5 Monitor Mode: External Duration (sec)2399: 40-100 Quality: Mild Resting Tone [place]: Relaxed Contraction Comments: pt c/o uc pain at 2 out of 10. Heart Rate FHR Baseline Rate: 125 Monitor Mode: External US FHR Baseline Changes: No Baseline Change Variability: Moderate 6-25 bpm Accelerations: 15X15 Decelerations: Variable Category: Category II Datetime: 12/11/2016 22:00 Labor Evaluation Frequency: x4 Monitor Mode: External Duration (sec)2399: 40-180 Quality: Mild Resting Tone [place]: Relaxed Contraction Comments: pt complains of uc pain at 1-2 out of 10. Heart Rate FHR Baseline Rate: 135 Monitor Mode: External US FHR Baseline Changes: No Baseline Change Variability: Moderate 6-25 bpm Accelerations: 15X15 Decelerations: None Category: Category I Pain Assessment Pain Scale: 2 Pain Presence: Intermittent Pain Type: Cramping Pain Location: Abdomen Pain Assessment Comments: pt c/o pain at 1-2 out of 10. Datetime: 12/11/2016 21:00 Labor Evaluation Frequency: x2 Monitor Mode: External Duration (sec)2399: 60-100 Quality: Mild Resting Tone [place]: Relaxed Contraction Comments: pt without complaint of uc pain. Heart Rate FHR Baseline Rate: 130 Monitor Mode: External US FHR Baseline Changes: No Baseline Change Variability: Moderate 6-25 bpm Accelerations: 15X15 Decelerations: Variable Category: Category II Pain Assessment Pain Scale: 0 Pain Presence: None/Denies Datetime: 12/11/2016 20:12 Assessment Type: Ongoing Assessment Maternal Assessment Level of Consciousness: Fully Conscious DTR's/Clonus: DTRs 2+; No Clonus Headache: Denies Blurred Vision: No Respiratory Effort: Unlabored; Regular Rhythm; Equal Expansion Breath Sounds, Left: Clear and Equal Breath Sounds, Right: Clear and Equal Nausea/Vomiting: Denies RUQ Epigastric Pain: Denies Lower Extremities Edema: None Degree: None Upper Extremities Edema: None Degree: None Facial Edema: None Fall Risk Assessment History of Falling: (0) No Secondary Diagnosis: (0) No Ambulatory Aid: (0) Bedrest/Nurse Assist IV Therapy: (20) Yes Gait: (0) Normal/Bedrest/Immobile Mental Status: (0) Oriented to Own Ability Fall Score: 20 Fall Risk Score Definition: No Risk: No action required Datetime: 12/11/2016 20:00 Labor Evaluation Frequency: x2 Monitor Mode: External Duration (sec)2399: 60-100 Quality: Mild Resting Tone [place]: Relaxed Contraction Comments: pt without complaint of uc pain. Heart Rate FHR Baseline Rate: 125 Monitor Mode: External US FHR Baseline Changes: No Baseline Change Variability: Moderate 6-25 bpm Accelerations: 15X15 Decelerations: Variable Category: Category II Pain Assessment Pain Scale: 0 Pain Presence: None/Denies Datetime: 12/11/2016 19:56 Stage of : Antepartum Temperature Route: Oral Datetime: 12/11/2016 18:07 Labor Evaluation Frequency: 1 Monitor Mode: External Duration (sec)2399: 120 Quality: Mild Resting Tone [place]: Relaxed Heart Rate FHR Baseline Rate: 125 Monitor Mode: External US FHR Baseline Changes: No Baseline Change Variability: Moderate 6-25 bpm Accelerations: 15X15 Decelerations: None Category: Category I Pain Presence: None/Denies Datetime: 12/11/2016 17:02 Labor Evaluation Frequency: 0 Monitor Mode: External Resting Tone [place]: Relaxed Heart Rate FHR Baseline Rate: 120 Monitor Mode: External US FHR Baseline Changes: No Baseline Change Variability: Moderate 6-25 bpm Accelerations: 15X15 Decelerations: None Category: Category I Datetime: 12/11/2016 16:33 Breath Sounds, Left: Clear and Equal Breath Sounds, Right: Clear and Equal Labor Evaluation Frequency: 5 Monitor Mode: External Duration (sec)2399: 60 Quality: Mild Resting Tone [place]: Relaxed Heart Rate FHR Baseline Rate: 125 Monitor Mode: External US FHR Baseline Changes: No Baseline Change Variability: Moderate 6-25 bpm Accelerations: 15X15 Decelerations: None Category: Category I Pain Presence: None/Denies Datetime: 12/11/2016 14:27 Comments: girdle band to hold monitor Datetime: 12/11/2016 14:26 Comments: loc Datetime: 12/11/2016 13:51 Labor Evaluation Frequency: ocasional Monitor Mode: External Resting Tone [place]: Relaxed Heart Rate FHR Baseline Rate: 130 Monitor Mode: External US FHR Baseline Changes: No Baseline Change Variability: Moderate 6-25 bpm Accelerations: 15X15 Decelerations: None Category: Category I Datetime: 12/11/2016 11:56 Labor Evaluation Frequency: 0 Monitor Mode: External Resting Tone [place]: Relaxed Heart Rate FHR Baseline Rate: 135 Monitor Mode: External US FHR Baseline Changes: No Baseline Change Variability: Moderate 6-25 bpm Accelerations: 15X15 Decelerations: None Category: Category I Datetime: 12/11/2016 10:58 Heart Rate FHR Baseline Rate: 130 FHR Baseline Changes: Bradycardia Variability: Moderate 6-25 bpm Accelerations: 15X15 Decelerations: Variable Category: Category I Datetime: 12/11/2016 10:11 Labor Evaluation Frequency: 1 Monitor Mode: External Duration (sec)2399: 120 with irritability Quality: Mild Resting Tone [place]: Relaxed Heart Rate FHR Baseline Rate: 130 Monitor Mode: External US FHR Baseline Changes: No Baseline Change Variability: Moderate 6-25 bpm Accelerations: 15X15 Decelerations: None Category: Category I Datetime: 12/11/2016 09:56 Comments: monitors placed Pain Presence: None/Denies Datetime: 12/11/2016 08:21 Assessment Type: Ongoing Assessment Maternal Assessment Level of Consciousness: Fully Conscious DTR's/Clonus: DTRs 2+; No Clonus Headache: Denies Blurred Vision: No Respiratory Effort: Unlabored; Regular Rhythm; Equal Expansion Breath Sounds, Left: Clear and Equal Breath Sounds, Right: Clear and Equal Nausea/Vomiting: Denies RUQ Epigastric Pain: Denies Facial Edema: None Fall Risk Assessment History of Falling: (0) No Secondary Diagnosis: (0) No Ambulatory Aid: (0) Bedrest/Nurse Assist Gait: (0) Normal/Bedrest/Immobile Mental Status: (0) Oriented to Own Ability Datetime: 12/11/2016 08:00 Maternal Assessment Level of Consciousness: Fully Conscious Headache: Denies Blurred Vision: No Breath Sounds, Left: Clear and Equal Breath Sounds, Right: Clear and Equal Nausea/Vomiting: Denies RUQ Epigastric Pain: Denies Labor Evaluation Frequency: 0 Monitor Mode: External Resting Tone [place]: Relaxed Heart Rate FHR Baseline Rate: 125 Monitor Mode: External US FHR Baseline Changes: No Baseline Change Variability: Moderate 6-25 bpm Accelerations: 15X15 Decelerations: Prolonged Category: Category II Pain Presence: None/Denies Datetime: 12/11/2016 06:58 Stage of : Antepartum Maternal Assessment Level of Consciousness: Fully Conscious Monitor Mode: External Pattern: Normal: <= 5 Contractions in 10 Minutes Resting Tone [place]: Relaxed Heart Rate FHR Baseline Rate: 130 Monitor Mode: External US Variability: Moderate 6-25 bpm Accelerations: 15X15 Decelerations: None Pain Assessment Pain Scale: 4 Pain Presence: Intermittent Pain Type: Cramping Pain Location: Abdomen Pain Goal: 0 Datetime: 12/11/2016 06:08 Stage of : Antepartum Maternal Assessment Level of Consciousness: Fully Conscious Monitor Mode: External Pattern: Normal: <= 5 Contractions in 10 Minutes Resting Tone [place]: Relaxed Heart Rate FHR Baseline Rate: 130 Monitor Mode: External US Variability: Moderate 6-25 bpm Accelerations: 15X15 Decelerations: None Pain Assessment Pain Scale: 4 Pain Presence: Intermittent Pain Type: Cramping Pain Location: Abdomen Pain Goal: 0 Datetime: 12/11/2016 05:16 Stage of : Antepartum Maternal Assessment Level of Consciousness: Fully Conscious Temperature Route: Oral Labor Evaluation Frequency: 1 Monitor Mode: External Duration (sec)2399: 70 Quality: Mild Pattern: Normal: <= 5 Contractions in 10 Minutes Resting Tone [place]: Relaxed Heart Rate FHR Baseline Rate: 135 Monitor Mode: External US Variability: Moderate 6-25 bpm Accelerations: 15X15 Decelerations: None Pain Assessment Pain Scale: 4 Pain Presence: Intermittent Pain Type: Cramping Pain Location: Abdomen Pain Goal: 0 Datetime: 12/11/2016 04:30 Stage of : Antepartum Maternal Assessment Level of Consciousness: Fully Conscious Labor Evaluation Frequency: 2 Monitor Mode: External Duration (sec)2399: 50-70 Quality: Mild Pattern: Normal: <= 5 Contractions in 10 Minutes Resting Tone [place]: Relaxed Heart Rate FHR Baseline Rate: 130 Monitor Mode: External US Variability: Moderate 6-25 bpm Accelerations: 15X15 Decelerations: None Pain Assessment Pain Scale: 4 Pain Presence: Intermittent Pain Type: Cramping Pain Location: Abdomen Pain Goal: 0 Datetime: 12/11/2016 03:30 Stage of : Antepartum Maternal Assessment Level of Consciousness: Fully Conscious Monitor Mode: External Pattern: Normal: <= 5 Contractions in 10 Minutes Resting Tone [place]: Relaxed Heart Rate FHR Baseline Rate: 130 Monitor Mode: External US Variability: Moderate 6-25 bpm Accelerations: 15X15 Decelerations: None Pain Assessment Pain Scale: 4 Pain Presence: Intermittent Pain Type: Cramping Pain Location: Abdomen Pain Goal: 0 Datetime: 12/11/2016 02:30 Stage of : Antepartum Maternal Assessment Level of Consciousness: Fully Conscious Monitor Mode: External Pattern: Normal: <= 5 Contractions in 10 Minutes Resting Tone [place]: Relaxed Heart Rate FHR Baseline Rate: 132 Monitor Mode: External US Variability: Moderate 6-25 bpm Accelerations: 15X15 Decelerations: None Pain Assessment Pain Scale: 4 Pain Presence: Intermittent Pain Type: Cramping Pain Location: Abdomen Pain Goal: 0 Datetime: 12/11/2016 01:30 Stage of : Antepartum Maternal Assessment Level of Consciousness: Fully Conscious Labor Evaluation Frequency: 1 Monitor Mode: External Duration (sec)2399: 90 Quality: Mild Pattern: Normal: <= 5 Contractions in 10 Minutes Resting Tone [place]: Relaxed Heart Rate FHR Baseline Rate: 135 Monitor Mode: External US Variability: Moderate 6-25 bpm Accelerations: 15X15 Decelerations: None Pain Assessment Pain Scale: 4 Pain Presence: Intermittent Pain Type: Cramping Pain Location: Abdomen Pain Goal: 0 Datetime: 12/11/2016 00:37 Stage of : Antepartum Maternal Assessment Level of Consciousness: Fully Conscious Labor Evaluation Frequency: 1 Monitor Mode: External Duration (sec)2399: 90 Quality: Mild Pattern: Normal: <= 5 Contractions in 10 Minutes Resting Tone [place]: Relaxed Heart Rate FHR Baseline Rate: 135 Monitor Mode: External US Variability: Moderate 6-25 bpm Accelerations: 15X15 Decelerations: None Pain Assessment Pain Scale: 4 Pain Presence: Intermittent Pain Type: Cramping Pain Location: Abdomen Pain Goal: 0 Datetime: 12/10/2016 23:30 Stage of : Antepartum Maternal Assessment Level of Consciousness: Fully Conscious Labor Evaluation Frequency: 2-10 Monitor Mode: External Duration (sec)2399: 40-90 Quality: Mild Pattern: Normal: <= 5 Contractions in 10 Minutes Resting Tone [place]: Relaxed Heart Rate FHR Baseline Rate: 135 Monitor Mode: External US Variability: Moderate 6-25 bpm Accelerations: 15X15 Decelerations: None Pain Assessment Pain Scale: 4 Pain Presence: Intermittent Pain Type: Cramping Pain Location: Abdomen Pain Goal: 0 Datetime: 12/10/2016 22:40 Stage of : Antepartum Assessment Type: Ongoing Assessment Maternal Assessment Level of Consciousness: Fully Conscious DTR's/Clonus: DTRs 2+; No Clonus Headache: Denies Blurred Vision: No Respiratory Effort: Unlabored; Regular Rhythm; Equal Expansion Breath Sounds, Left: Clear and Equal Breath Sounds, Right: Clear and Equal Nausea/Vomiting: Denies RUQ Epigastric Pain: Denies Lower Extremities Edema: None Upper Extremities Edema: None Facial Edema: None Fall Risk Assessment History of Falling: (0) No Secondary Diagnosis: (0) No Ambulatory Aid: (0) Bedrest/Nurse Assist Gait: (0) Normal/Bedrest/Immobile Mental Status: (0) Oriented to Own Ability Datetime: 12/10/2016 22:27 Stage of : Antepartum Maternal Assessment Level of Consciousness: Fully Conscious DTR's/Clonus: DTRs 2+ Headache: Denies Breath Sounds, Left: Clear and Equal Breath Sounds, Right: Clear and Equal Nausea/Vomiting: Denies RUQ Epigastric Pain: Denies Temperature Route: Oral Labor Evaluation Frequency: 2-10 Monitor Mode: External Duration (sec)2399: 40-90 Quality: Mild Pattern: Normal: <= 5 Contractions in 10 Minutes Resting Tone [place]: Relaxed Heart Rate FHR Baseline Rate: 135 Monitor Mode: External US Variability: Moderate 6-25 bpm Accelerations: 15X15 Decelerations: None Pain Assessment Pain Scale: 4 Pain Presence: Intermittent Pain Type: Cramping Pain Location: Abdomen Pain Goal: 0 Datetime: 12/10/2016 22:00 Labor Evaluation Frequency: 2-10 Monitor Mode: External Duration (sec)2399: 40-90 Quality: Mild Pattern: Normal: <= 5 Contractions in 10 Minutes Resting Tone [place]: Relaxed Heart Rate FHR Baseline Rate: 135 Monitor Mode: External US Variability: Moderate 6-25 bpm Accelerations: 15X15 Decelerations: None Category: Category I Pain Assessment Pain Scale: 4 Pain Presence: Intermittent Pain Type: Cramping Pain Location: Abdomen Datetime: 12/10/2016 21:00 Labor Evaluation Frequency: 2-9 Monitor Mode: External Duration (sec)2399: 40-70 Quality: Mild Pattern: Normal: <= 5 Contractions in 10 Minutes Resting Tone [place]: Relaxed Heart Rate FHR Baseline Rate: 140 Monitor Mode: External US Variability: Moderate 6-25 bpm Accelerations: 15X15 Decelerations: None Category: Category I Pain Assessment Pain Scale: 4 Pain Presence: Intermittent Pain Type: Cramping Pain Location: Abdomen Datetime: 12/10/2016 20:00 Labor Evaluation Frequency: 2-11 Monitor Mode: External Duration (sec)2399: 40-80 Quality: Mild Pattern: Normal: <= 5 Contractions in 10 Minutes Resting Tone [place]: Relaxed Heart Rate FHR Baseline Rate: 140 Monitor Mode: External US Variability: Moderate 6-25 bpm Accelerations: 15X15 Decelerations: None Category: Category I Datetime: 12/10/2016 19:19 Assessment Type: Ongoing Assessment Maternal Assessment Level of Consciousness: Fully Conscious DTR's/Clonus: DTRs 2+; No Clonus Headache: Denies Blurred Vision: No Respiratory Effort: Unlabored; Regular Rhythm; Equal Expansion Breath Sounds, Left: Clear and Equal Breath Sounds, Right: Clear and Equal Nausea/Vomiting: Denies RUQ Epigastric Pain: Denies Lower Extremities Edema: None Upper Extremities Edema: None Facial Edema: None Fall Risk Assessment History of Falling: (0) No Secondary Diagnosis: (0) No Ambulatory Aid: (0) Bedrest/Nurse Assist Gait: (0) Normal/Bedrest/Immobile Mental Status: (0) Oriented to Own Ability Pain Assessment Pain Scale: 5 Pain Presence: Intermittent Pain Type: Cramping Pain Location: Abdomen Pain Relief Measures: Comfort Measures Datetime: 12/10/2016 19:18 Comments: Report to Angi head of [employer] Datetime: 12/10/2016 18:54 Labor Evaluation Frequency: 6-7 Monitor Mode: External Duration (sec)2399: 60-70 Quality: Mild Pattern: Normal: <= 5 Contractions in 10 Minutes Resting Tone [place]: Relaxed Heart Rate FHR Baseline Rate: 145 Monitor Mode: External US FHR Baseline Changes: No Baseline Change Variability: Moderate 6-25 bpm Accelerations: 15X15 Decelerations: None Category: Category I Datetime: 12/10/2016 18:30 Labor Evaluation Frequency: 2-7 Monitor Mode: External Duration (sec)2399: 50-80 Quality: Mild Pattern: Normal: <= 5 Contractions in 10 Minutes Resting Tone [place]: Relaxed Heart Rate FHR Baseline Rate: 130 Monitor Mode: External US FHR Baseline Changes: No Baseline Change Variability: Moderate 6-25 bpm Accelerations: 15X15 Decelerations: None Category: Category I Datetime: 12/10/2016 18:27 Stage of : Labor Datetime: 12/10/2016 18:01 Labor Evaluation Frequency: 3-5 Monitor Mode: External Duration (sec)2399: 60-70 Quality: Mild Pattern: Normal: <= 5 Contractions in 10 Minutes Resting Tone [place]: Relaxed Heart Rate FHR Baseline Rate: 135 Monitor Mode: External US FHR Baseline Changes: No Baseline Change Variability: Moderate 6-25 bpm Accelerations: 15X15 Decelerations: None Category: Category I Datetime: 12/10/2016 17:31 Labor Evaluation Frequency: 1-7 Monitor Mode: External Duration (sec)2399: 50-100 Quality: Mild Pattern: Normal: <= 5 Contractions in 10 Minutes Resting Tone [place]: Relaxed Heart Rate FHR Baseline Rate: 130 Monitor Mode: External US FHR Baseline Changes: No Baseline Change Variability: Moderate 6-25 bpm Accelerations: 15X15 Decelerations: None Category: Category I Datetime: 12/10/2016 17:18 Comments: Pt sitting up having dinner Datetime: 12/10/2016 17:00 Labor Evaluation Frequency: 2-7 Monitor Mode: External Duration (sec)2399: 50-70 Quality: Mild Pattern: Normal: <= 5 Contractions in 10 Minutes Resting Tone [place]: Relaxed Heart Rate FHR Baseline Rate: 130 Monitor Mode: External US FHR Baseline Changes: No Baseline Change Variability: Moderate 6-25 bpm Accelerations: 15X15 Decelerations: None Category: Category I Pain Assessment Pain Scale: 4 Pain Presence: Intermittent Pain Type: Cramping Pain Location: Abdomen Pain Goal: 7 Pain Relief Measures: Comfort Measures Datetime: 12/10/2016 16:09 Stage of : Labor Temperature Route: Oral Datetime: 12/10/2016 16:00 Labor Evaluation Frequency: 1-8 Monitor Mode: External Duration (sec)2399: 50-80 Quality: Mild Pattern: Normal: <= 5 Contractions in 10 Minutes Resting Tone [place]: Relaxed Heart Rate FHR Baseline Rate: 135 Monitor Mode: External US FHR Baseline Changes: No Baseline Change Variability: Moderate 6-25 bpm Accelerations: 15X15 Decelerations: None Category: Category I Pain Assessment Pain Scale: 4 Pain Presence: Intermittent Pain Type: Cramping Pain Location: Abdomen Pain Goal: 7 Pain Relief Measures: Comfort Measures Datetime: 12/10/2016 15:31 Labor Evaluation Frequency: 2-7 Monitor Mode: External Duration (sec)2399: 60-90 Quality: Mild Pattern: Normal: <= 5 Contractions in 10 Minutes Resting Tone [place]: Relaxed Heart Rate FHR Baseline Rate: 130 Monitor Mode: External US FHR Baseline Changes: No Baseline Change Variability: Minimal - Undetectable to <=5 bpm Accelerations: 10X10 Decelerations: None Category: Category I Pain Assessment Pain Scale: 4 Pain Presence: Intermittent Pain Type: Cramping Pain Location: Abdomen Pain Goal: 7 Pain Relief Measures: Comfort Measures Datetime: 12/10/2016 15:24 Comments: LEFT TILT Datetime: 12/10/2016 14:58 Maternal Assessment Level of Consciousness: Fully Conscious Headache: Denies Blurred Vision: No Nausea/Vomiting: Denies RUQ Epigastric Pain: Denies Facial Edema: None Labor Evaluation Frequency: 2-6 Monitor Mode: External Duration (sec)2399: 50-80 Quality: Mild Pattern: Normal: <= 5 Contractions in 10 Minutes Resting Tone [place]: Relaxed Heart Rate FHR Baseline Rate: 135 Monitor Mode: External US FHR Baseline Changes: No Baseline Change Variability: Moderate 6-25 bpm Accelerations: 15X15 Decelerations: None Category: Category I Membrane Status: Intact Datetime: 12/10/2016 14:32 Assessment Type: Ongoing Assessment Maternal Assessment Level of Consciousness: Fully Conscious DTR's/Clonus: DTRs 2+; No Clonus Headache: Denies Blurred Vision: No Respiratory Effort: Unlabored; Regular Rhythm; Equal Expansion Breath Sounds, Left: Clear and Equal Breath Sounds, Right: Clear and Equal Nausea/Vomiting: Denies RUQ Epigastric Pain: Denies Lower Extremities Edema: None Upper Extremities Edema: None Facial Edema: None Fall Risk Assessment History of Falling: (0) No Secondary Diagnosis: (0) No Ambulatory Aid: (0) Bedrest/Nurse Assist Gait: (0) Normal/Bedrest/Immobile Mental Status: (0) Oriented to Own Ability Datetime: 12/10/2016 14:19 Comments: Assume care of pt at this time, report taken from Shawna RN Datetime: 12/10/2016 08:37 Fall Score: 0 Fall Risk Score Definition: No Risk: No action required Datetime: 12/10/2016 07:50 Fall Score: 0 Fall Risk Score Definition: No Risk: No action required Datetime: 12/09/2016 22:51 EGA: 35.0 Datetime: 12/09/2016 22:48 Fall Score: 0 Fall Risk Score Definition: No Risk: No action required
[2017-01-10] MEDS: LACTATED RINGER'S 1,000 ML IV SCH ×2 (19:20→21:58)
[2017-01-10] MEDS ORDERED: METHYLERGONOVINE 0.2 MG INJ IM PRN (19:30)
[2017-01-10] MEDS ORDERED: IBUPROFEN 600 MG TAB PO PRN (19:30)
[2017-01-10] MEDS ORDERED: CARBOPROST 250 MCG INJ IM PRN (19:30)
[2017-01-10] MEDS ORDERED: OXYTOCIN 30 UNITS/LR 500 ML IV SCH ×2 (19:30)
[2017-01-10] MEDS ORDERED: LIDOCAINE 1% (MPF) 30 ML INJ INJ PRN (19:30)
[2017-01-10] MEDS ORDERED: OXYTOCIN 30 UNITS/LR 500 ML IV PRN (19:30)
[2017-01-10] MEDS ORDERED: MISOPROSTOL 200 MCG TAB PR PRN (19:30)
[2017-01-10] MEDS ORDERED: AMPICILLIN 2 GM/NS (PMX) 100 ML IV ONE (19:30)
[2017-01-10] MEDS ORDERED: BUTORPHANOL 2 MG INJ IV PRN ×2 (19:30)
[2017-01-10 19:43] LABS: ALANINE AMINOTRANSFERASE 24 IU/L (13-69); ALBUMIN 3.9 g/dl (3.3-4.9); ALBUMIN/GLOBULIN RATIO 1.14; ALKALINE PHOSPHATASE 226 IU/L (42-121); ANION GAP 13 (8-16); ASPARTATE AMINO TRANSFERASE 28 IU/L (15-46); BILIRUBIN,INDIRECT 0.2 mg/dl (0-1.1); BILIRUBIN,TOTAL 0.2 mg/dl (0.2-1.3); BLOOD UREA NITROGEN 9 mg/dl (7-20); CALCIUM 9.7 mg/dl (8.4-10.2); CARBON DIOXIDE 24 mmol/L (21-31); CHLORIDE 103 mmol/L (97-110); CREATININE 0.46 mg/dl (0.44-1.00); GLUCOSE 77 mg/dl (70-220); POTASSIUM 4.1 mmol/L (3.5-5.1); SODIUM 136 mmol/L (135-144); TOTAL PROTEIN 7.3 g/dl (6.1-8.1)
[2017-01-10 23:16] LABS: BASOPHILS % 0.2 % (0.0-2.0); EOSINOPHILS # 0.1 10^3/ul (0.0-0.5); EOSINOPHILS % 0.6 % (0.0-7.0); HEMATOCRIT 33.7 % (37.0-47.0); HEMOGLOBIN 11.4 g/dl (12.0-16.0); LYMPHOCYTES # 1.5 10^3/ul (0.8-2.9); LYMPHOCYTES % 11.2 % (15.0-51.0); MEAN CORPUSCULAR HEMOGLOBIN 29.1 pg (29.0-33.0); MEAN CORPUSCULAR HGB CONC 33.8 g/dl (32.0-37.0); MEAN PLATELET VOLUME 9.8 fl (7.4-10.4); MONOCYTE # 0.6 10^3/ul (0.3-0.9); MONOCYTES % 4.1 % (0.0-11.0); NEUTROPHIL # 11.1 10^3/ul (1.6-7.5); NEUTROPHILS % 82.5 % (39.0-77.0); PLATELET COUNT 302 10^3/UL (140-415); RED BLOOD COUNT 3.92 10^6/ul (4.20-5.40); RED CELL DISTRIBUTION WIDTH 14.1 % (11.5-14.5); WHITE BLOOD COUNT 13.5 10^3/ul (4.8-10.8)
[2017-01-10] MEDS ORDERED: AMPICILLIN 1 GM/NS (PMX) 50 ML IV SCH (23:30)
[2017-01-11 00:21] LABS: INR 0.84; PARTIAL THROMBOPLASTIN TIME 23.1 Sec (25.0-35.0); PROTIME 11.5 Sec (12.2-14.2); PT RATIO 0.9
[2017-01-11] MEDS: LACTATED RINGER'S 1,000 ML IV SCH (04:38)
[2017-01-11] MEDS ORDERED: OXYTOCIN 30 UNITS/LR 500 ML BAG IV ONE (07:00)
[2017-01-11] MEDS ORDERED: CEFAZOLIN 2 GM/50 ML (PMX) 50 ML IVPB ONE (09:30)
--- NOTE | 2017-01-11 09:49 | HP ---
Date/Time of Note Date/Time of Note DATE: 01/11/17 TIME: 09:31 OB - History Hx of Present Free Text/Dictation 31 years old female EDC January 15, 2017 admitted to the hospital with mild labor contraction she underwent a biophysical profile which the result was 10/12 estimated weight 4223 g 95 percentile, to continue trial of labor possible vaginal delivery over 14 hours of labor there was no progress in cervical dilatation still at 1 cm 80% effaced vertex at -1 station, with regard to the baby's size and weigh, risk of shoulder dystocia discussed, but continuation trial of labor recommended, patient declined further trial of labor requesting operative delivery by section complication of the surgery including but not limited to bowel and bladder injury infection hemorrhage and hematoma explained, all her questions answered would like to proceed with the delivery Chief Complaint: Labor pain Estimated Due Date: Jan 15, 2017 : 1 Para: 0 Care: Good Care Ultrasounds: Abnormal US findings Obstetrical Complications: None Medical Complications: None Past Family/Social History * Past Medical, Surgical, Family and Obstetric Histories reviewed from chart. Rubella: immune RPR/VDRL: Negative GBS Status: Negative HBsAG: Negative OB Admission Exam Vital Signs Vital Signs Vital Signs Date Time Temp Pulse Resp B/P Pulse Ox O2 Delivery O2 Flow Rate FiO2 01/10/17 14:37 98.5 92 18 117/64 97 Room Air Physical Exam HEENT: WNL Heart: Rhythm Normal Lungs: Clear, Equal Abdomen: WNL Extremities: Normal Reflexes: Normal Cervical Dilatation: 1cm Effacement: 75% Station: -1 Membranes: Intact Heart Rate: 130's Accelerations: Accelerations Present Decelerations: No Decelerations Varibility: Moderate Contractions on Admission: < 5 Minutes Apart Intensity: Moderate Last 72 hours Lab Results CBC & BMP 01/10/17 18:00 Liver Function Test 01/10/17 18:00 Alanine Aminotransferase (ALT/SGPT) 24 Albumin 3.9 Alkaline Phosphatase 226 H Aspartate Amino Transf (AST/SGOT) 28 Direct Bilirubin 0.00 Total Protein 7.3 OB Assessment/Plan Reason for admission: other (Term in labor) Other plan: 31 years old EDC January 15 admitted in early labor underwent biophysical profile and estimated weight ,reported physical 10/12 estimated weight 4223 g considering the weight of the baby possibility of shoulder dystocia was discussed with the mother all her questions answered decided not to continue with trial of labor and possible vaginal delivery requesting C- section delivery, complication of the surgery including bowel bladder injury infection hemorrhage and hematoma was discussed her questions answered she would like to proceed with the operation. TOMY ALBRIGHT MD Jan 11, 2017 09:42
[2017-01-11] MEDS ORDERED: ONDANSETRON 4 MG INJ IV STA (09:50)
[2017-01-11] MEDS ORDERED: CITRIC ACID/SODIUM CITRATE 15 ML CUP ONE (09:54)
[2017-01-11] MEDS ORDERED: ONDANSETRON 4 MG INJ ONE (09:55)
[2017-01-11] MEDS ORDERED: CITRIC ACID/SODIUM CITRATE 15 ML CUP PO ONE (10:00)
[2017-01-11 11:19] VITALS: Ht 162.6 cm; Wt 82.2 kg
[2017-01-11 11:20] VITALS: BP 122/72; PULSE 87; RESP 18
[2017-01-11] MEDS ORDERED: morphine SULFATE/PF (10 MG/10 ML) INJ ONE (11:54)
[2017-01-11] MEDS ORDERED: METOCLOPRAMIDE 10 MG INJ ONE (11:54)
[2017-01-11] MEDS ORDERED: OXYTOCIN 10 UNIT INJ ONE (11:54)
[2017-01-11] MEDS ORDERED: PHENYLephrine (100 MCG/ML) 5ML SYG ONE (11:54)
[2017-01-11] MEDS ORDERED: DEXAMETHASONE 4 MG/ML 1 ML INJ ONE (12:01)
[2017-01-11] MEDS ORDERED: KETOROLAC 30 MG INJ ONE (12:01)
[2017-01-11] MEDS ORDERED: FENTAnyl 50 MCG/ML VIAL ONE (12:27)
[2017-01-11] MEDS ORDERED: MEPERIDINE 100 MG INJ ONE (12:28)
--- NOTE | 2017-01-11 13:11 | OPR ---
Operative Report Planned Procedure Free Text/Dictation Any years old female admitted to the hospital in labor on January 10, 2017 at 1740 in early labor, pelvic examination and admission cervix half a centimeter dilated 80% effaced vertex at -1 -2 station after approximately 18 hours of labor not make any further progress with the estimated weight of 4000 g plus patient declined further trial of labor requested delivery. Procedure date Jan 11, 2017 Procedure(s) Primary Performed by see signature line Assisting provider: PEIRRE GRUBER M.D. Anesthesiologist: LIAM SWEENEY MD Pre-procedure diagnosis 39 weeks 2 days in labor approximately 17-18 hours, suspected large baby, patient declined further trial of labor requested delivery Anesthesia Type: spinal Procedure Description Under satisfactory [spinal] anesthesia, the patient was prepped and draped and placed in a supine position, tilted to the left. Pfannenstiel incision was made , carried through the subcutaneous tissue. Bleeders brought under control with electrocautery. Fascia incised to the length of the incision. Rectus muscles from the fascia, divided midline. Peritoneum exposed, entered through a transverse incision. Exploration of abdomen revealed gravid uterus normal- appearing tubes and right ovary on the left side left ovary seems to be very small and adherent to the fallopian tube. Bladder flap was developed. Transverse incision was made in the lower segment of the uterus. Amniotic sac ruptured. [Clear] amniotic fluid noted. [Light baby boy was delivered from occiput posterior position] Nasal oropharyngeal suction was performed. The baby was handed to the team for immediate attention. placenta was delivered manually intact. Uterine cavity cleaned with wet sponge and drainage established. Uterus closed in 2 layers using [Monocryl #1] in continuous fashion. Peritoneal cavity irrigated with warm saline. Sponge, needle and instrument count reported to be correct. Abdominal peritoneum closed with [2-0 chromic catgut] continuously. Rectus muscle approximated with [few interrupted 2 -0 chromic catgut]. Fascia closed with [#1 PDS],. Subcutaneous tissue approximated with few interrupted 2-0 chromic catgut skin closed with N sorb estimated blood loss 600 []mL. Urine bag contained [200]mL of clear urine patient tolerated procedure well transferred to recovery room in good condition Post-Procedure Findings: Live Baby boy Apgars 9 and 9 weighted 8 lbs. 1 oz. 3665 g Estimated blood loss: other (600) Specimen(s): no Grafts/Implants: no Complication(s): no Pt Condition post procedure: stable Physician Certification I, the undersigned physician, hereby certify that I have discussed the procedure described in this consent form with this patient (or the patient's legal manufacturer representative), including: * The risk and benefits of the procedure; * Any adverse reactions that may reasonably be expected to occur; * Any alternative efficacious methods of treatment which may be medically viable ; * The potential problems that may occur during recuperation; * Potential for blood transfusion and associated risks/benefits; and * Any research or economic interest I may have regarding this treatment. I further certify that the patient/legally responsible person was encouraged to ask question and that all questions were answered. TOMY ALBRIGHT MD Jan 11, 2017 13:08
[2017-01-11] MEDS ORDERED: ONDANSETRON 4 MG INJ IV PRN (13:30)
[2017-01-11] MEDS ORDERED: HYDROmorphONE 0.5 MG/0.5 ML SYG IV PRN ×2 (13:30)
[2017-01-11] MEDS ORDERED: NALBUPHINE HCL (10 MG/1 ML) INJ IV PRN (13:30)
[2017-01-11] MEDS ORDERED: morphine 2 MG INJ IV PRN (13:30)
[2017-01-11] MEDS ORDERED: morphine 4 MG/ML VIAL IV PRN (13:30)
[2017-01-11] MEDS ORDERED: KETOROLAC 30 MG INJ IV PRN (13:30)
[2017-01-11] MEDS ORDERED: DIPHENHYDRAMINE 50 MG INJ IV PRN (13:30)
[2017-01-11] MEDS ORDERED: NALOXONE (0.4 MG/ML) INJ IV PRN (13:30)
[2017-01-11] MEDS ORDERED: ACETAMINOPHEN 500 MG TAB PO PRN (13:30)
[2017-01-11] MEDS ORDERED: PNV11TAB PO (14:55)
[2017-01-11 16:04] VITALS: BP 112/57; PULSE 70; RESP 18
[2017-01-11 16:19] VITALS: BP 104/57; PULSE 68; RESP 18
[2017-01-11] MEDS ORDERED: LANOLIN 7 GM TUBE TOP PRN (16:30)
[2017-01-11] MEDS ORDERED: OXYCODONE/ACETAMINOPHEN (5/325) TAB PO PRN (16:30)
[2017-01-11] MEDS ORDERED: CARBOPROST 250 MCG INJ IM PRN (16:30)
[2017-01-11] MEDS ORDERED: MISOPROSTOL 200 MCG TAB PR PRN (16:30)
[2017-01-11] MEDS ORDERED: METHYLERGONOVINE 0.2 MG INJ IM PRN (16:30)
[2017-01-11] MEDS ORDERED: OXYTOCIN 30 UNITS/LR 500 ML IV PRN (16:30)
[2017-01-11] MEDS ORDERED: HYDROCODONE/APAP (5/325) TAB PO PRN ×2 (16:30)
[2017-01-11] MEDS ORDERED: CEFAZOLIN 1 GM/50 ML (PMX) 50 ML IVPB SCH (16:30)
[2017-01-11 18:00] VITALS: BP 111/61; PULSE 68; RESP 18
[2017-01-11 19:30] VITALS: BP 108/62; PULSE 74; RESP 18
[2017-01-11] MEDS ORDERED: CEFAZOLIN 1 GM/50 ML (PMX) 50 ML IVPB ONE (20:00)
[2017-01-11] MEDS: OXYTOCIN 30 UNITS/LR 500 ML IV SCH ×2 (20:18→20:21)
[2017-01-12] VITALS: BP 116/68; PULSE 82; RESP 20
[2017-01-12] MEDS: OXYTOCIN 30 UNITS/LR 500 ML IV SCH ×2 (00:54→04:55)
[2017-01-12 04:00] VITALS: BP 98/60; PULSE 83; RESP 18
[2017-01-12] MEDS ORDERED: LACTATED RINGER'S 1,000 ML IV SCH (05:30)
[2017-01-12 07:50] VITALS: BP 95/54; PULSE 82; RESP 17
--- NOTE | 2017-01-12 08:32 | QN ---
Documentation Comment Post day 1 Afebrile Vital signs are stable Abdomen soft Bowel sounds present, incision dry, Extremities normal Ambulation encouraged TOMY ALBRIGHT MD Jan 12, 2017 08:32
[2017-01-12 09:03] LABS: BASOPHILS % 0.1 % (0.0-2.0); EOSINOPHILS % 0.3 % (0.0-7.0); HEMATOCRIT 26.1 % (37.0-47.0); HEMOGLOBIN 8.5 g/dl (12.0-16.0); LYMPHOCYTES # 1.6 10^3/ul (0.8-2.9); MEAN CORPUSCULAR HEMOGLOBIN 28.3 pg (29.0-33.0); MEAN CORPUSCULAR HGB CONC 32.6 g/dl (32.0-37.0); MEAN PLATELET VOLUME 9.7 fl (7.4-10.4); MONOCYTE # 0.8 10^3/ul (0.3-0.9); MONOCYTES % 8.5 % (0.0-11.0); NEUTROPHIL # 7.1 10^3/ul (1.6-7.5); NEUTROPHILS % 73.4 % (39.0-77.0); PLATELET COUNT 214 10^3/UL (140-415); RED CELL DISTRIBUTION WIDTH 14.3 % (11.5-14.5); WHITE BLOOD COUNT 9.7 10^3/ul (4.8-10.8)
[2017-01-12] MEDS: SENNA/DOCUSATE NA (8.6MG/50MG) TAB PO SCH ×2 (09:37→20:40)
[2017-01-12] MEDS ORDERED: KETOROLAC 30 MG INJ IV ONE (12:00)
[2017-01-12] MEDS ORDERED: IBUPROFEN 600 MG TAB PO SCH (12:00)
[2017-01-12 12:14] VITALS: BP 94/53; PULSE 89; RESP 18
[2017-01-12 16:32] VITALS: BP 101/54; PULSE 89; RESP 19
[2017-01-12] MEDS: OXYCODONE/ACETAMINOPHEN (5/325) TAB PO PRN ×2 (16:32→20:40)
[2017-01-12] MEDS: IBUPROFEN 600 MG TAB PO SCH ×2 (18:11→23:32)
[2017-01-12 20:00] VITALS: BP 95/54; PULSE 101; RESP 18
[2017-01-12] MEDS ORDERED: NITROFURANTOIN (SR) 100 MG CAP PO SCH (21:00)
[2017-01-12 22:39] LABS: ADD UMIC YES; UR ASCORBIC ACID NEGATIVE (NEGATIVE); UR BILIRUBIN (Dip) NEGATIVE (NEGATIVE); UR BLOOD (Dip) 2+ mg/dL (NEGATIVE); UR CLARITY CLEAR (CLEAR); UR COLOR STRAW (YELLOW); UR GLUCOSE (Dip) NEGATIVE (NEGATIVE); UR KETONES (Dip) NEGATIVE (NEGATIVE); UR LEUKOCYTE ESTERASE (Dip) NEGATIVE Leu/ul (NEGATIVE); UR NITRITE (Dip) NEGATIVE (NEGATIVE); UR RBC 0 /HPF (0-5); UR SPECIFIC GRAVITY (Dip) 1.002 (1.003-1.030); UR TOTAL PROTEIN (Dip) NEGATIVE (NEGATIVE); UR UROBILINOGEN (Dip) NEGATIVE (NEGATIVE)
[2017-01-12 22:48] LABS: UR SQUAMOUS EPITHELIAL CELL FEW /HPF (FEW)
[2017-01-13 04:00] VITALS: BP 99/55; PULSE 79; RESP 18
[2017-01-13] MEDS: IBUPROFEN 600 MG TAB PO SCH ×3 (05:34→18:20)
--- NOTE | 2017-01-13 08:09 | OPPN ---
Date/Time of Note Date/Time of Note DATE: 01/13/17 TIME: 08:09 Post-Anesthesia Notes Post-Anesthesia Note Last documented vital signs Vital Signs Date Time Temp Pulse Resp B/P Pulse Ox O2 Delivery O2 Flow Rate FiO2 01/13/17 04:00 97.9 79 18 99/55 Room Air 01/12/17 03:29 96 21 Activity: WNL Respiratory function: WNL Cardiovascular function: WNL Mental status: Baseline Pain reasonably controlled: Yes Hydration appropriate: Yes Nausea/Vomiting absent: Yes KEYONA PAULSON MD Jan 13, 2017 08:09
[2017-01-13 08:30] VITALS: BP 96/56; PULSE 72; RESP 18
[2017-01-13] MEDS ORDERED: INFLUENZA VIRUS VACCINE 0.5 ML (DISPENSING) IM* ONE (09:00)
[2017-01-13] MEDS: SENNA/DOCUSATE NA (8.6MG/50MG) TAB PO SCH ×2 (09:38→21:09)
--- NOTE | 2017-01-13 10:21 | QN ---
Documentation Comment Post day 2 Afebrile, vital signs are stable Abdomen soft, good bowel sounds, able to pass flatus, incision dry, extremities negative Ambulation encouraged, if no BM by this afternoon fleets enema recommended TOMY ALBRIGHT MD Jan 13, 2017 10:21
[2017-01-13] MEDS ORDERED: NA PHOSPHATE/BIPHOS 133 ML ENEMA PR ONE (10:30)
[2017-01-13 15:43] VITALS: BP 102/57; PULSE 87; RESP 18
[2017-01-13 20:10] VITALS: BP 99/62; PULSE 79; RESP 18
[2017-01-14] MEDS: IBUPROFEN 600 MG TAB PO SCH ×3 (00:38→11:53)
[2017-01-14 04:25] VITALS: BP 110/62; PULSE 78; RESP 18
[2017-01-14] MEDS ORDERED: DIPHTH/TET/ACEL PERTUSS (ADULT) 0.5 ML VIAL IM* ONE (09:00)
--- NOTE | 2017-01-14 09:04 | PD.PPDC ---
[facility] Discharge Instruction Condition Patient Condition: Good Diet Diet: Resume Regular Diet Activity/Restrictions Activity: Normal Activity May Shower Wound/Drain Care Instructions Wound/Drain Care Instructions: Remove Steri Strips in 1 week Follow-up Follow-up with Physician: 1, Week/Weeks Provider Information: Post instruction given recommended to make appointment to be seen at the clinic in 1 week Return to clinic for [employer] Instructions: Fever greater than 101 Chills Worsening abdominal pain Excessive Vaginal Bleeding More than 2 pads per hour Unable to tolerate diet OB Instructions: Breast Tenderness Depression Blurried Vision Headache Surgical Instructions: Incisional Drainage Incisional Redness TOMY ALBRIGHT MD Jan 14, 2017 09:04
[2017-01-14 09:06] VITALS: BP 97/60; PULSE 76; RESP 19
[2017-01-14] MEDS: SENNA/DOCUSATE NA (8.6MG/50MG) TAB PO SCH (09:07)
--- NOTE | 2017-01-14 09:12 | DS ---
Date/Time of Note Date/Time of Note DATE: 01/14/17 TIME: 09:10 Discharge Summary Admission/Discharge Info Admit Date/Time Jan 10, 2017 at 17:40 Discharge Date/Time January 14, 2017 at 9:10 AM Discharge Diagnosis Post primary date 3 Patient Condition: Good Procedures Primary Hx of Present Illness Term suspected large baby Hospital Course Satisfactory recovery uneventful Home Meds Reported Medications [id number] ( 19) 1 Each Tablet, 1 TAB PO DAILY, TAB 01/11/17 Follow-up Plan Post instructions given recommended to make appointment to be seen at the clinic in 1 week Primary Care Provider Not On Staff Doctor Time spent on discharge: < 30 minutes TOMY ALBRIGHT MD Jan 14, 2017 09:12
== END 2017-01-14 15:00 | disposition home or self-care (01) | DRG 766 ==
LOC: OBT 13:54 → L-D 13:54 → OBT 17:40 → L-D 17:40 → PP1 01-11 16:08
PROVIDERS: ADMIT Obstetrics & Gynecology; ATTEND Obstetrics & Gynecology
PROC: 3E0P3VZ Introduction of Hormone into Female Reproductive, Percutaneous Approach (ICD-10-PCS; 2017-01-11)
PROC: 10D00Z1 Extraction of Products of Conception, Low, Open Approach (ICD-10-PCS; principal; 2017-01-11 12:15)
DX: O75.82 Onset (spontaneous) of labor after 37 completed weeks of gestation but before 39 completed weeks gestation, with delivery by (planned) cesarean section (principal); Z37.0 Single live birth; Z3A.39 39 weeks gestation of pregnancy
CPT/HCPCS: 76815; 76818; 80053; 81001; 85025; 85610; 85730; 86592; 86900; 86901; 87086; 87340; 90686; 90715; 94760; 99464; G0463; J0595; J0690; J1100; J1885; J2175; J2274; J2370; J2405; J2590; J2765; J3010; J7120